=== PATIENT | male | born 1975 | race American Indian/Alaskan Native ===

== ENCOUNTER 2018-10-13 10:20 | Emergency (ER) | payer MEDICAID, OTHER ==
[2018-10-13] MEDS ORDERED: Sodium Chloride 0.9% 1,000 ML IV ONE (10:44)
[2018-10-13] MEDS ORDERED: Sodium Chloride 0.9% 10 ML Syringe FLUSH PRN (10:44)
[2018-10-13] MEDS ORDERED: Sodium Chloride 0.9% 2.5 ML Syringe FLUSH PRN (10:44)
--- NOTE | 2018-10-13 10:51 | EDM.PDOC ---
ED HPI GENERAL MEDICAL PROBLEM - General Chief Complaint: Abdominal Pain Stated Complaint: SIDE PAIN Time Seen by Provider: 10/13/18 10:51 Source of Information: Reports: Patient History Limitations: Reports: No Limitations - History of Present Illness INITIAL COMMENTS - FREE TEXT/NARRATIVE: HISTORY AND PHYSICAL: History of present illness: Patient is a 43-year-old female here with complaint of right lower quadrant pain since this morning. Patient was seen in the ED 09/21 for an umbilical hernia and found to have a small bowel obstruction. He was sent to [place] and had hernia repair done there by Dr. Garcia. He did have post op wound dehiscence and infection at the incision site but today states he is not having any pain or purulent drainage from his incision. He states it is sharp constant pain in the right lower quadrant that started suddenly this morning. He has felt feverish with chills and states he is nauseous. He denies vomiting or diarrhea. He has a normal nonbloody bowel movement this morning. Review of systems: As per history of present illness and below otherwise all systems reviewed and negative. Past medical history: As per history of present illness and as reviewed below otherwise noncontributory. Surgical history: As per history of present illness and as reviewed below otherwise noncontributory. Social history: No reported history of drug or alcohol abuse. Family history: As per history of present illness and as reviewed below otherwise noncontributory. Physical exam: General: Patient sitting comfortably in no acute distress and nontoxic appearing HEENT: Atraumatic, normocephalic, pupils reactive, negative for conjunctival pallor or scleral icterus, mucous membranes moist, throat clear, neck supple, nontender, trachea midline. No meningeal signs. Lungs: Clear to auscultation, breath sounds equal bilaterally, chest nontender. Heart: S1S2, regular, negative for clicks, rubs, or overt murmur. Abdomen: Midline abdominal incision with arabella in place and dehiscence of the lower portion of the incision without any erythema or purulent drainage. Mild diffuse abdominal tenderness with moderate tenderness to palpation of the RLQ. Soft, nondistended. Negative for masses or hepatosplenomegaly. Negative for costovertebral tenderness. Pelvis: Stable nontender. Genitourinary: Deferred. Rectal: Deferred. Extremities: Atraumatic, negative for cords or calf pain. Neurovascular unremarkable. Neuro: Awake, alert, oriented. Cranial nerves II through XII unremarkable. Cerebellum unremarkable. Motor and sensory unremarkable throughout. Exam nonfocal. Notes: Discussed with Dr. Winston, general surgery, at [facility]. He states patient may wait to see Dr. Garcia tomorrow as he does have a follow with her already schedule but should return to the ED should his symptoms worsen for transfer to [facility]. Patient was informed to return to the ED if he develops worsening pain, vomiting, fevers, etc. Diagnostics: CBC, CMP, UA, UC, CT abdomen pelvis with contrast Therapeutics: 1 L normal saline IV 4 mg morphine IV Prescriptions: [place] Impression: Abdominal pain, post operative free air Plan: 1. Take norco as needed for pain 2. Follow up with your surgeon tomorrow at [place] 3. Return to ED as needed as discussed Definitive disposition and diagnosis as appropriate pending reevaluation and review of above. Right Lower Abdomen Pain Score (Numeric/FACES): 10 - Related Data Allergies Allergy/AdvReac Type Severity Reaction Status Date / Time No Known Allergies Allergy Verified 10/13/18 10:36 Home Meds: Home Meds hydroCHLOROthiazide [Hydrochlorothiazide] 25 mg PO DAILY 10/13/18 [History] Past Medical History HEENT History: Reports: None Cardiovascular History: Reports: None, Hypertension Respiratory History: Reports: None Gastrointestinal History: Reports: Other (See Below) Other Gastrointestinal History: Hernia, Umbillical Genitourinary History: Reports: None Musculoskeletal History: Reports: None Neurological History: Reports: None Psychiatric History: Reports: None Endocrine/Metabolic History: Reports: None, Obesity/BMI 30+ Hematologic History: Reports: None Immunologic History: Reports: None Oncologic (Cancer) History: Reports: None Dermatologic History: Reports: None - Infectious Disease History Infectious Disease History: Reports: Chicken Pox - Past Surgical History Head Surgeries/Procedures: Reports: None HEENT Surgical History: Reports: Eye Surgery Cardiovascular Surgical History: Reports: None Respiratory Surgical History: Reports: None GI Surgical History: Reports: Hernia, Abdominal, Other (See Below) Other GI Surgeries/Procedures: umbilical hernia Male Surgical History: Reports: None Endocrine Surgical History: Reports: None Neurological Surgical History: Reports: None Musculoskeletal Surgical History: Reports: None Dermatological Surgical History: Reports: None Social & Family History - Family History Family Medical History: Noncontributory - Tobacco Use Smoking Status *Q: Current Every Day Smoker Years of Tobacco use: 30 Packs/Tins Daily: 1 - Caffeine Use Caffeine Use: Reports: Soda - Recreational Drug Use Recreational Drug Use: No ED ROS GENERAL - Review of Systems Review Of Systems: ROS reveals no pertinent complaints other than HPI. ED EXAM, GI/ABD - Physical Exam Exam: See Below (see dictation) Course - Vital Signs Last Recorded V/S: Last Vital Signs Temp 96.5 F 10/13/18 10:31 Pulse Resp 18 10/13/18 10:31 BP 132/68 10/13/18 10:31 Pulse Ox - Orders/Labs/Meds Orders: Active Orders 24 hr Category Date Time Status CULTURE URINE [RM] Stat Lab 10/13/18 11:07 Received Sodium Chloride 0.9% [Saline Flush] Med 10/13/18 10:44 Active 10 ml FLUSH ASDIRECTED PRN Sodium Chloride 0.9% [Saline Flush] Med 10/13/18 10:44 Active 2.5 ml FLUSH ASDIRECTED PRN Saline Lock Insert [OM.PC] Stat Oth 10/13/18 10:43 Ordered Medication Orders Sodium Chloride (Saline Flush) 10 ml FLUSH ASDIRECTED PRN PRN Reason: Keep Vein Open Sodium Chloride (Saline Flush) 2.5 ml FLUSH ASDIRECTED PRN PRN Reason: Keep Vein Open Labs: Laboratory Tests 10/13/18 10/13/18 10/13/18 Range/Units 11:07 11:12 11:12 WBC 15.13 H (4.0-11.0) K/uL RBC 5.03 (4.50-5.90) M/uL Hgb 13.7 (13.0-17.0) g/dL Hct 41.7 (38.0-50.0) % MCV 82.9 (80.0-98.0) fL MCH 27.2 (27.0-32.0) pg MCHC 32.9 (31.0-37.0) g/dL RDW Std Deviation 41.9 (28.0-62.0) fl RDW Coeff of Basil 14 (11.0-15.0) % Plt Count 400 (150-400) K/uL MPV 9.30 (7.40-12.00) fL Neut % (Auto) 85.7 H (48.0-80.0) % Lymph % (Auto) 8.9 L (16.0-40.0) % [place] % (Auto) 4.8 (0.0-15.0) % Eos % (Auto) 0.3 (0.0-7.0) % Baso % (Auto) 0.3 (0.0-1.5) % Neut # (Auto) 13.0 H (1.4-5.7) K/uL Lymph # (Auto) 1.3 (0.6-2.4) K/uL [place] # (Auto) 0.7 (0.0-0.8) K/uL Eos # (Auto) 0.1 (0.0-0.7) K/uL Baso # (Auto) 0.0 (0.0-0.1) K/uL Nucleated RBC % 0.0 /100WBC Nucleated RBCs # 0 K/uL Sodium 135 L (136-148) mmol/L Potassium 4.3 (3.5-5.1) mmol/L Chloride 99 (98-107) mmol/L Carbon Dioxide 25.1 (21.0-32.0) mmol/L BUN 11 (7.0-18.0) mg/dL Creatinine 1.1 (0.8-1.3) mg/dL Est Cr Clr Drug Dosing 79.29 mL/min Estimated GFR (MDRD) > 60.0 ml/min Glucose 161 H (74-106) mg/dL Calcium 9.5 (8.5-10.1) mg/dL Total Bilirubin 0.4 (0.2-1.0) mg/dL AST 16 (15-37) IU/L ALT 22 (14-63) IU/L Alkaline Phosphatase 84 (46-116) U/L Total Protein 8.9 H (6.4-8.2) g/dL Albumin 3.6 (3.4-5.0) g/dL Globulin 5.3 H (2.6-4.0) g/dL Albumin/Globulin Ratio 0.7 L (0.9-1.6) Urine Color YELLOW Urine Appearance CLEAR Urine pH 6.5 (5.0-8.0) Ur Specific [place] 1.025 (1.001-1.035) Urine Protein NEGATIVE (NEGATIVE) mg/dL Urine Glucose (UA) NEGATIVE (NEGATIVE) mg/dL Urine Ketones NEGATIVE (NEGATIVE) mg/dL Urine Occult Blood TRACE-INTACT H (NEGATIVE) Urine Nitrite NEGATIVE (NEGATIVE) Urine Bilirubin NEGATIVE (NEGATIVE) Urine Urobilinogen 0.2 (<2.0) EU/dL Ur Leukocyte Esterase NEGATIVE (NEGATIVE) Urine RBC 2-4 (0-2/HPF) Urine WBC 1-3 (0-5/HPF) Ur Epithelial Cells RARE (NONE-FEW) Urine Bacteria RARE (NEGATIVE) Meds: Medications Generic Name Dose Route Start Last Admin Trade Name Freq PRN Reason Stop Dose Admin Sodium Chloride 10 ml 10/13/18 10:44 Saline Flush FLUSH ASDIRECTED PRN Keep Vein Open Sodium Chloride 2.5 ml 10/13/18 10:44 Saline Flush FLUSH ASDIRECTED PRN Keep Vein Open Discontinued Medications Generic Name Dose Route Start Last Admin Trade Name Freq PRN Reason Stop Dose Admin Sodium Chloride 1,000 mls @ 999 mls/hr 10/13/18 10:44 10/13/18 11:23 Normal Saline IV 10/13/18 11:44 999 mls/hr STAT ONE Administration Iopamidol 100 ml 10/13/18 12:22 10/13/18 12:22 Isovue Multipack-370 (76%) IVPUSH 10/13/18 12:23 100 ml ONETIME ONE Administration Morphine Sulfate 4 mg 10/13/18 10:55 10/13/18 11:30 Morphine IVPUSH 10/13/18 10:56 4 mg ONETIME ONE Administration Ondansetron HCl 4 mg 10/13/18 11:24 10/13/18 11:28 Zofran IVPUSH 10/13/18 11:25 4 mg ONETIME ONE Administration Departure - Departure Time of Disposition: 13:24 Disposition: Home, Self-Care 01 Condition: Good Clinical Impression: Abdominal pain, Post-operative complication - Discharge Information Referrals: Avel Ray [Primary Care Provider] - Forms: ED Department Discharge Additional Instructions: The following information is given to patients seen in the emergency department who are being discharged to home. This information is to outline your options for follow-up care. We provide all patients seen in our emergency department with a follow-up referral. The need for follow-up, as well as the timing and circumstances, are variable depending upon the specifics of your emergency department visit. If you don't have a primary care physician on staff, we will provide you with a referral. We always advise you to contact your personal physician following an emergency department visit to inform them of the circumstance of the visit and for follow-up with them and/or the need for any referrals to a consulting specialist. The emergency department will also refer you to a specialist when appropriate. This referral assures that you have the opportunity for follow-up care with a specialist. All of these measure are taken in an effort to provide you with optimal care, which includes your follow-up. Under all circumstances we always encourage you to contact your private physician who remains a resource for coordinating your care. When calling for follow-up care, please make the office aware that this follow-up is from your recent emergency room visit. If for any reason you are refused follow-up, please contact the [facility] Emergency Department at and asked to speak to the emergency department charge nurse. [address] [address] 1. Take norco as needed for pain 2. Follow up with your surgeon tomorrow at [place] 3. Return to ED as needed as discussed - My Orders Last 24 Hours: My Active Orders 10/13/18 10:43 Saline Lock Insert [OM.PC] Stat 10/13/18 10:44 Sodium Chloride 0.9% [Saline Flush] 10 ml FLUSH ASDIRECTED PRN Sodium Chloride 0.9% [Saline Flush] 2.5 ml FLUSH ASDIRECTED PRN 10/13/18 11:07 CULTURE URINE [RM] Stat - Assessment/Plan Last 24 Hours: My Active Orders 10/13/18 10:43 Saline Lock Insert [OM.PC] Stat 10/13/18 10:44 Sodium Chloride 0.9% [Saline Flush] 10 ml FLUSH ASDIRECTED PRN Sodium Chloride 0.9% [Saline Flush] 2.5 ml FLUSH ASDIRECTED PRN 10/13/18 11:07 CULTURE URINE [RM] Stat
[2018-10-13] MEDS ORDERED: Morphine 4 MG/ML Syringe IVPUSH ONE (10:55)
[2018-10-13] MEDS ORDERED: Ondansetron 4 MG/2 ML SDV IVPUSH ONE (11:24)
[2018-10-13 11:53] LABS: CHLORIDE,CL 99 mmol/L (98-107); SODIUM,NA 135 mmol/L (136-148)
[2018-10-13] MEDS ORDERED: Iopamidol 755 MG/ML 500 ML Multipack Bottle IVPUSH ONE (12:22)
--- NOTE | 2018-10-13 12:54 | CT ---
CT of the abdomen and pelvis with contrast. HISTORY: Pain TECHNIQUE: Axial CT images were obtained of the abdomen and pelvis following administration of 100 mL of Isovue-370 in the left antecubital fossa without complication. Coronal and sagittal reconstructions obtained. Comparison: 09/30/2018. FINDINGS: The lung bases are clear, no pleural effusion. The liver, spleen, and pancreas appear normal. Stable 1.9 cm left adrenal nodule. No bulky retroperitoneal lymphadenopathy or abdominal ascites. There is a small amount of free air noted. Cholelithiasis without evidence of cholecystitis. The kidneys enhance and function symmetrically without evidence of obstructive uropathy. There is a single loop of borderline small bowel within the region of the distal ileum. Postsurgical changes noted along the ventral abdomen with a decreasing subcutaneous collection. There is stranding adjacent to the distal ileum with focal wall thickening and free air. The appendix is unremarkable. No pelvic lymphadenopathy or significant free pelvic fluid. Small fat-containing bilateral inguinal hernias. No suspicious osseous abnormalities identified. IMPRESSION: 1. Increasing free air is stranding adjacent to the distal ileum. This may represent a focal area of perforation. This could suggest a small area of ischemia from the previous bowel obstruction which has now perforated. Additionally there is a single loop of mildly prominent bowel adjacent to this region which may suggest a recurrent obstruction however the more proximal small bowel is not distended. 2. Previously demonstrated subcutaneous ventral fluid collection along the incision margin has decreased in size and prominence. 3. Cholelithiasis without evidence of cholecystitis.
== END 2018-10-13 13:46 | disposition home or self-care (01) ==
LOC: MW.ED 10:20
DX: K91.89 Other postprocedural complications and disorders of digestive system (principal); R10.31 Right lower quadrant pain; I10 Essential (primary) hypertension; E66.9 Obesity, unspecified; F17.210 Nicotine dependence, cigarettes, uncomplicated
CPT/HCPCS: 36415; 74177; 80053; 81001; 85025; 87086; 96361; 96374; 96375; 99284; J2270; J2405; J7040; Q9967

== ENCOUNTER 2018-10-25 23:08 | Emergency (ER) | payer MEDICAID, OTHER ==
[2018-10-25] MEDS ORDERED: Sodium Chloride 0.9% 1,000 ML IV ONE (23:18)
--- NOTE | 2018-10-25 23:22 | EDM.PDOC ---
ED HPI GENERAL MEDICAL PROBLEM - General Chief Complaint: Abdominal Pain Stated Complaint: ABDOMINAL PAIN Time Seen by Provider: 10/25/18 23:11 - History of Present Illness INITIAL COMMENTS - FREE TEXT/NARRATIVE: HISTORY AND PHYSICAL: History of present illness: Patient 43-year-old white male with past medical history significant for prior ventral hernia repair with subsequent wound complications and chronic pain subsequent. Was seen on October 15 in our emergency department for abdominal pain and reported constipation with no bowel movement for the prior 3-4 weeks at that time he was found to have a fluid collection in his right upper quadrant with pneumoperitoneum and was felt to be a likely contained perforation was subsequently transferred to [facility] he received evaluation treatment there in the form of nonsurgical management and presents now with recurrence of his abdominal pain. There's been no reported fever chills he denies any nausea vomiting. Review of systems: As per history of present illness and below otherwise all systems reviewed and negative. Past medical history: As per history of present illness and as reviewed below otherwise noncontributory. Surgical history: As per history of present illness and as reviewed below otherwise noncontributory. Social history: No reported history of drug or alcohol abuse. Family history: As per history of present illness and as reviewed below otherwise noncontributory. Physical exam: HEENT: Atraumatic, normocephalic, pupils reactive, negative for conjunctival pallor or scleral icterus, mucous membranes moist, throat clear, neck supple, nontender, trachea midline. Lungs: Clear to auscultation, breath sounds equal bilaterally, chest nontender. Heart: S1S2, regular, negative for clicks, rubs, or JVD. Abdomen: Soft, nondistended, nonlocalized tenderness no rebound no guarding Negative for masses or hepatosplenomegaly. Negative for costovertebral tenderness. Pelvis: Stable nontender. Genitourinary: Deferred. Rectal: Deferred. Extremities: Atraumatic, negative for cords or calf pain. Neurovascular unremarkable. Neuro: Awake, alert, oriented. Cranial nerves II through XII unremarkable. Cerebellum unremarkable. Motor and sensory unremarkable throughout. Exam nonfocal. Diagnostics: CBC CMP UA CT abdomen and pelvis with IV contrast chest x-ray EKG Therapeutics: Saline 1 L bolus Impression: #1 abdominal pain Definitive disposition and diagnosis as appropriate pending reevaluation and review of above. Abdomen Pain Score (Numeric/FACES): 10 - Related Data Allergies Allergy/AdvReac Type Severity Reaction Status Date / Time No Known Allergies Allergy Verified 10/25/18 23:17 Home Meds: Home Meds hydroCHLOROthiazide [Hydrochlorothiazide] 25 mg PO DAILY 10/13/18 [History] Past Medical History HEENT History: Reports: None Cardiovascular History: Reports: Hypertension Respiratory History: Reports: None Gastrointestinal History: Reports: Other (See Below) Other Gastrointestinal History: Hernia, Umbillical Genitourinary History: Reports: None Musculoskeletal History: Reports: None Neurological History: Reports: None Psychiatric History: Reports: None Endocrine/Metabolic History: Reports: None, Obesity/BMI 30+ Hematologic History: Reports: None Immunologic History: Reports: None Oncologic (Cancer) History: Reports: None Dermatologic History: Reports: None - Infectious Disease History Infectious Disease History: Reports: Chicken Pox - Past Surgical History Head Surgeries/Procedures: Reports: None HEENT Surgical History: Reports: Eye Surgery Cardiovascular Surgical History: Reports: None Respiratory Surgical History: Reports: None GI Surgical History: Reports: Hernia, Abdominal, Hernia Repair/Other, Other ( See Below) Other GI Surgeries/Procedures: umbilical hernia Male Surgical History: Reports: None Endocrine Surgical History: Reports: None Neurological Surgical History: Reports: None Musculoskeletal Surgical History: Reports: None Dermatological Surgical History: Reports: None Social & Family History - Family History Family Medical History: Noncontributory - Caffeine Use Caffeine Use: Reports: Soda ED ROS GENERAL - Review of Systems Review Of Systems: ROS reveals no pertinent complaints other than HPI. ED EXAM, GENERAL - Physical Exam Exam: See Below (See dictation) Course - Vital Signs Last Recorded V/S: Last Vital Signs Temp 36.3 C 10/26/18 01:50 Pulse 112 H 10/26/18 01:50 Resp 18 10/26/18 01:50 BP 110/63 10/26/18 01:50 Pulse Ox 93 L 10/26/18 01:50 - Orders/Labs/Meds Orders: Active Orders 24 hr Category Date Time Status EKG Documentation Completion [RC] STAT Care 10/25/18 23:19 Active Oxygen Therapy [RC] ASDIRECTED Care 10/26/18 01:51 Active Abdomen Pelvis w Cont [CT] Stat Exams 10/25/18 23:19 Taken CULTURE BLOOD [BC] Stat Lab 10/26/18 00:45 Received CULTURE BLOOD [BC] Stat Lab 10/26/18 00:55 Received UA W/PAM RFLX IF INDICATED [URIN] Stat Lab 10/25/18 23:19 Ordered Blood Culture x2 Reflex Set [OM.PC] Stat Oth 10/26/18 00:33 Ordered Labs: Laboratory Tests 10/25/18 10/25/18 10/25/18 Range/Units 23:40 23:40 23:40 WBC 24.30 H (4.0-11.0) K/uL RBC 4.96 (4.50-5.90) M/uL Hgb 13.7 (13.0-17.0) g/dL Hct 40.3 (38.0-50.0) % MCV 81.3 (80.0-98.0) fL MCH 27.6 (27.0-32.0) pg MCHC 34.0 (31.0-37.0) g/dL RDW Std Deviation 41.2 (28.0-62.0) fl RDW Coeff of Basil 14 (11.0-15.0) % Plt Count 354 (150-400) K/uL MPV 9.50 (7.40-12.00) fL Add Manual Diff YES Neutrophils % (Manual) 91 H (48.0-80.0) % Lymphocytes % (Manual) 5 L (16.0-40.0) % Monocytes % (Manual) 4 (0.0-15.0) % Nucleated RBC % 0.0 /100WBC Absolute Seg Neuts 22.1 H (1.4-5.7) Lymphocytes # (Manual) 1.2 (0.6-2.4) Monocytes # (Manual) 1.0 H (0.0-0.8) Nucleated RBCs # 0 K/uL Lactate 1.7 (0.20-2.00) mmol/L Sodium 134 L (136-148) mmol/L Potassium 4.0 (3.5-5.1) mmol/L Chloride 97 L (98-107) mmol/L Carbon Dioxide 26.8 (21.0-32.0) mmol/L BUN 11 (7.0-18.0) mg/dL Creatinine 1.1 (0.8-1.3) mg/dL Est Cr Clr Drug Dosing 79.29 mL/min Estimated GFR (MDRD) > 60.0 ml/min Glucose 171 H (74-106) mg/dL Calcium 9.4 (8.5-10.1) mg/dL Total Bilirubin 0.8 (0.2-1.0) mg/dL AST 10 L (15-37) IU/L ALT 10 L (14-63) IU/L Alkaline Phosphatase 57 (46-116) U/L Total Protein 7.6 (6.4-8.2) g/dL Albumin 2.7 L (3.4-5.0) g/dL Globulin 4.9 H (2.6-4.0) g/dL Albumin/Globulin Ratio 0.6 L (0.9-1.6) Meds: Medications Discontinued Medications Generic Name Dose Route Start Last Admin Trade Name Freq PRN Reason Stop Dose Admin Hydromorphone HCl 1 mg 10/26/18 01:30 10/26/18 01:34 Dilaudid IVPUSH 10/26/18 01:31 1 mg ONETIME ONE Administration Sodium Chloride 1,000 mls @ 999 mls/hr 10/25/18 23:18 10/26/18 00:18 Normal Saline IV 10/26/18 00:18 999 mls/hr .BOLUS ONE Administration Metronidazole 500 mg/ Premix 100 mls @ 100 mls/hr 10/26/18 00:34 IV 10/26/18 01:33 ONETIME ONE Piperacillin Sod/Tazobactam 100 mls @ 100 mls/hr 10/26/18 00:33 10/26/18 01: 18 Sod 4.5 gm/ Sodium Chloride IV 10/26/18 01:32 100 mls/hr ONETIME ONE Administration Iopamidol 100 ml 10/26/18 01:08 10/26/18 01:17 Isovue-370 (76%) IVPUSH 10/26/18 01:09 100 ml ONETIME ONE Administration Departure - Departure Time of Disposition: 02:04 Disposition: DC/Tfer to Acute Hospital 02 Condition: Serious Clinical Impression: Leukocytosis Abdominal pain Qualifiers: Abdominal location: right upper quadrant Qualified Code(s): R10.11 - Right upper quadrant pain - Discharge Information Referrals: PCP,Unknown [Primary Care Provider] - Forms: ED Department Discharge - My Orders Last 24 Hours: My Active Orders 10/25/18 23:19 EKG Documentation Completion [RC] STAT Abdomen Pelvis w Cont [CT] Stat UA W/PAM RFLX IF INDICATED [URIN] Stat 10/26/18 00:33 Blood Culture x2 Reflex Set [OM.PC] Stat 10/26/18 00:45 CULTURE BLOOD [BC] Stat 10/26/18 00:55 CULTURE BLOOD [BC] Stat 10/26/18 01:51 Oxygen Therapy [RC] ASDIRECTED - Assessment/Plan Last 24 Hours: My Active Orders 10/25/18 23:19 EKG Documentation Completion [RC] STAT Abdomen Pelvis w Cont [CT] Stat UA W/PAM RFLX IF INDICATED [URIN] Stat 10/26/18 00:33 Blood Culture x2 Reflex Set [OM.PC] Stat 10/26/18 00:45 CULTURE BLOOD [BC] Stat 10/26/18 00:55 CULTURE BLOOD [BC] Stat 10/26/18 01:51 Oxygen Therapy [RC] ASDIRECTED
[2018-10-26 00:16] LABS: CHLORIDE,CL 97 mmol/L (98-107); SODIUM,NA 134 mmol/L (136-148)
[2018-10-26] MEDS ORDERED: Piperacillin/Tazobactam 4.5 GM in Sodium Chloride 0.9% 100 ML IV ONE (00:33)
[2018-10-26] MEDS ORDERED: metroNIDAZOLE/Normal Saline 500 MG in Premix Bag 1 BAG IV ONE (00:34)
[2018-10-26] MEDS ORDERED: Iopamidol 755 Mg/ML 100 ML Bottle IVPUSH ONE (01:08)
[2018-10-26] MEDS ORDERED: HYDROmorphone 1 MG/ML Syringe IVPUSH ONE ×2 (01:30→02:23)
--- NOTE | 2018-10-26 01:34 | CR ---
INDICATION: Chest and abdominal pain. COMPARISON: None available. FINDINGS: An erect single view of the chest was obtained at 0104 hours. There is mild consolidation of the left lung base with loss of the left hemidiaphragm. There is probably a small left pleural effusion as well. The rest of the chest is clear. The heart is mildly enlarged. The mediastinum is otherwise normal in appearance. The osseous structures are normal in appearance for the patient`s age. IMPRESSION: MILD CONSOLIDATION OF THE LEFT LUNG BASE. PROBABLE SMALL LEFT PLEURAL EFFUSION. MILD CARDIOMEGALY. Dictated by Duc Matos MD @ Oct 26 2018 1:30AM Signed by Dr. Duc Matos @ Oct 26 2018 1:33AM
--- NOTE | 2018-10-26 02:09 | CT ---
INDICATION: Follow-up abscess in the right upper quadrant COMPARISON: CT of the abdomen and pelvis from 10/16/2018 TECHNIQUE: CT examination of the abdomen and pelvis was performed without contrast enhancement using 3 mm thick axial sections from the lung bases through the pubic symphysis. Oral contrast was not administered. Please note that all CT scans at this facility use dose modulation, iterative reconstruction, and/or weight-based dosing when appropriate to reduce radiation dose to as low as reasonably achievable. FINDINGS: In the abdomen, the unenhanced liver, spleen, pancreas, and ADRENALS are normal in appearance. The unenhanced kidneys are normal in appearance. The contracted gallbladder contains numerous small calculi. The gallbladder is otherwise normal in appearance. The abdominal aorta is normal in caliber with no sign of dilatation. There is no sign of retroperitoneal mass or adenopathy. There is new moderate dilatation of the proximal and mid small bowel extending to a point of transition in the right lower quadrant just distal to the loop of abnormal bowel seen on the previous study. The findings are that of a partial small-bowel obstruction produced by a stricture or adhesion in the right lower quadrant. There continues to be prominent inflammatory reaction around the loops of small bowel in the right lower quadrant and around the cecum, findings suggestive of Crohn`s disease. The previously seen contained perforation located lateral to the edematous loop of small bowel has decreased in size to 3.5 x 1.5 centimeters, previously 5.3 x 2.8 centimeters. There is increased extraluminal gas located posteriorly along the right lower quadrant anterior abdominal wall adjacent to the contained perforation did mentioned above. This suggests leakage of gas and pus from the collection. There is increased mild of free fluid located in the right pericolic gutter. In the pelvis, the appendix is normal in appearance with no sign of inflammatory process.. The colon in the pelvis is collapsed and otherwise normal in appearance. The prostate is normal in appearance. There is slightly increased mild free fluid in the pelvis. The urinary bladder is normal in appearance. There is no sign of pelvic or inguinal mass or adenopathy. There is increased platelike atelectasis in the left lung base associated with eventration of the left hemidiaphragm. The osseous structures are normal in appearance for the patient`s age. IMPRESSION: NEW PARTIAL SMALL BOWEL OBSTRUCTION WITH DILATATION OF THE MID AND PROXIMAL SMALL BOWEL EXTENDING A STRICTURE IN THE RIGHT LOWER QUADRANT DISTAL TO THE EDEMATOUS LOOPS OF SMALL BOWEL IDENTIFIED ON THE PREVIOUS CT. THE PREVIOUSLY SEEN FLUID COLLECTION LOCATED LATERAL TO THE ABNORMAL LOOP OF SMALL BOWEL THAT IS DECREASED IN SIZE, BUT THERE IS INCREASED EXTRALUMINAL GAS ALONG THE ANTERIOR ABDOMINAL WALL OF THE RIGHT LOWER QUADRANT AND SLIGHTLY INCREASED FLUID IN THE RIGHT PERICOLIC GUTTER, SUGGESTING THAT THE PREVIOUSLY SEEN ABSCESS HAS DRAINED INTO THE ABDOMINAL CAVITY CT OF THE ABDOMEN SHOWS STABLE CHOLELITHIASIS WITH NO SIGN OF ACUTE CHOLECYSTITIS. CT OF THE PELVIS SHOWS CONTINUED INFLAMMATORY REACTION AROUND THE DISTAL SMALL BOWEL AND CECUM SUGGESTING CROHN`S DISEASE. SLIGHTLY INCREASED MILD FREE FLUID IN THE PELVIS. Please note that all CT scans at this facility use dose modulation, iterative reconstruction, and/or weight-based dosing when appropriate to reduce radiation dose to as low as reasonably achievable. Dictated by Duc Matos MD @ Oct 26 2018 1:51AM Signed by Dr. Duc Matos @ Oct 26 2018 2:07AM
== END 2018-10-26 02:51 ==
LOC: MW.ED 23:08
DX: R10.11 Right upper quadrant pain (principal); D72.829 Elevated white blood cell count, unspecified
CPT/HCPCS: 36415; 71045; 74177; 80053; 81003; 83605; 85025; 87040; 93005; 96365; 96366; 96367; 96375; 96376; 99285; J1170; J2543; J3490; J7030; J7040; Q9967

== ENCOUNTER 2018-11-12 21:11 | Emergency (ER) | payer MEDICAID, OTHER ==
[2018-11-12] MEDS ORDERED: Sodium Chloride 0.9% 10 ML Syringe FLUSH PRN (21:36)
[2018-11-12] MEDS ORDERED: Sodium Chloride 0.9% 2.5 ML Syringe FLUSH PRN (21:36)
--- NOTE | 2018-11-12 21:49 | EDM.PDOC ---
<Lu Nieves - Last Filed: 11/12/18 22:07> ED HPI GENERAL MEDICAL PROBLEM - General Chief Complaint: Abdominal Pain Stated Complaint: ADOMINAL PAIN Time Seen by Provider: 11/12/18 21:49 Source of Information: Reports: Patient History Limitations: Reports: No Limitations - History of Present Illness INITIAL COMMENTS - FREE TEXT/NARRATIVE: HISTORY AND PHYSICAL: History of present illness: Patient is a 43-year-old male here with past medical history of ventral hernia repair on 09/21/18 with subsequent complications including bowel obstruction and abscess. His most recent visit to the ED was on 10/25 with complaints of significant lower abdominal pain and no bowel movement for several days. He was found to have leukocytosis and a new small bowel obstruction. CT also showed extraluminal gas along the anterior abdominal wall of the RLQ and slightly increased fluid in the right pericolic gutter, suggesting that abscess had drained into the abdominal cavity. He was transferred to [facility] and had a laparotomy with abscess drainage but no bowel resection. He states that his pain started last night and is in the epigastric region, comes and goes and is a sharp pain that lasts about 20 seconds then resolves. He states he otherwise does not have any pain in his abdomen. He reports it is not nearly as significant as it has been in the past. No pain around his incision site but does states he has been having a "poopy" drainage from the site. He also states that his surgeon poked the incision site after surgery and "popped something" and has noticed the drainage since then but has gotten worse today. He denies fevers or chills. He has had a few episodes of vomiting since yesterday, had a nonbloody stool yesterday and states he is not passing gas today. He denies chest pain, SOB, dysuria, hematuria. He is currently on augmentin. Review of systems: As per history of present illness and below otherwise all systems reviewed and negative. Past medical history: As per history of present illness and as reviewed below otherwise noncontributory. Surgical history: As per history of present illness and as reviewed below otherwise noncontributory. Social history: No reported history of drug or alcohol abuse. Family history: As per history of present illness and as reviewed below otherwise noncontributory. Physical exam: General: Patient sitting comfortably in no acute distress and nontoxic appearing HEENT: Atraumatic, normocephalic, pupils reactive, negative for conjunctival pallor or scleral icterus, mucous membranes moist, throat clear, neck supple, nontender, trachea midline. No meningeal signs. Lungs: Clear to auscultation, breath sounds equal bilaterally, chest nontender. Heart: S1S2, regular, negative for clicks, rubs, or overt murmur. Abdomen: Abdomen is obese. There is a midline surgical scar that appears to be well healing with healthy appearing granulation tissue and no purulent discharge. Horizontal incision to the right lower abdomen well healing with some slightly purulent appearing discharge and some surrounding tenderness to palpation but no significant erythema or fluctance noted. There is an area above and below this incision where drains were placed that have healthy appearing granulation tissues. Negative for masses or hepatosplenomegaly. Negative for costovertebral tenderness. Pelvis: Stable nontender. Genitourinary: Deferred. Rectal: Deferred. Extremities: Atraumatic, negative for cords or calf pain. Neurovascular unremarkable. Neuro: Awake, alert, oriented. Cranial nerves II through XII unremarkable. Cerebellum unremarkable. Motor and sensory unremarkable throughout. Exam nonfocal. Notes: Diagnostics: CBC, CMP, lactic acid, CT abdomen/pelvis w/ contrast Therapeutics: [] Prescriptions: Impression: [] Plan: Dr. Marie assumed care of the patient at 2200 Definitive disposition and diagnosis as appropriate pending reevaluation and review of above. Abdomen Pain Score (Numeric/FACES): 10 - Related Data Allergies Allergy/AdvReac Type Severity Reaction Status Date / Time No Known Allergies Allergy Verified 10/25/18 23:17 Home Meds: Home Meds Amoxicillin 500 mg PO BID 11/12/18 [History] Hydrocodone/Acetaminophen [Hydrocodon-Acetaminophen 5-325] 5 mg PO Q6HR [History] Past Medical History HEENT History: Reports: None Cardiovascular History: Reports: Hypertension Respiratory History: Reports: None Gastrointestinal History: Reports: Other (See Below) Other Gastrointestinal History: Hernia, Umbillical Genitourinary History: Reports: None Musculoskeletal History: Reports: None Neurological History: Reports: None Psychiatric History: Reports: None Endocrine/Metabolic History: Reports: None, Obesity/BMI 30+ Hematologic History: Reports: None Immunologic History: Reports: None Oncologic (Cancer) History: Reports: None Dermatologic History: Reports: None - Infectious Disease History Infectious Disease History: Reports: Chicken Pox - Past Surgical History Head Surgeries/Procedures: Reports: None HEENT Surgical History: Reports: Eye Surgery Cardiovascular Surgical History: Reports: None Respiratory Surgical History: Reports: None GI Surgical History: Reports: Hernia, Abdominal, Hernia Repair/Other, Other ( See Below) Other GI Surgeries/Procedures: umbilical hernia Male Surgical History: Reports: None Endocrine Surgical History: Reports: None Neurological Surgical History: Reports: None Musculoskeletal Surgical History: Reports: None Dermatological Surgical History: Reports: None Social & Family History - Family History Family Medical History: Noncontributory - Caffeine Use Caffeine Use: Reports: Soda ED ROS GENERAL - Review of Systems Review Of Systems: ROS reveals no pertinent complaints other than HPI. ED EXAM, GI/ABD - Physical Exam Exam: See Below (See dictation) Course - Vital Signs Last Recorded V/S: Last Vital Signs Temp 36.4 C 11/12/18 21:38 Pulse 115 H 11/12/18 21:38 Resp 18 11/12/18 21:38 BP 110/74 11/12/18 21:38 Pulse Ox 97 11/12/18 21:38 - Orders/Labs/Meds Orders: Active Orders 24 hr Category Date Time Status Lactated Ringers @ 150 MLS/HR(1,000ml) Med 11/13/18 00:15 Ordered Lactated Ringers [Ringers, Lactated] 1,000 ml IV ASDIRECTED Piperacillin/Tazobactam [Piperacil-Tazobact] 4.5 gm Med 11/13/18 00:02 Ordered Sodium Chloride 0.9% [Normal Saline] 100 ml IV ONETIME Sodium Chloride 0.9% [Saline Flush] Med 11/12/18 21:36 Active 10 ml FLUSH ASDIRECTED PRN Sodium Chloride 0.9% [Saline Flush] Med 11/12/18 21:36 Active 2.5 ml FLUSH ASDIRECTED PRN Saline Lock Insert [OM.PC] Stat Oth 11/12/18 21:36 Ordered Medication Orders Sodium Chloride (Saline Flush) 10 ml FLUSH ASDIRECTED PRN PRN Reason: Keep Vein Open Last Admin: 11/12/18 22:04 Dose: 10 ml Sodium Chloride (Saline Flush) 2.5 ml FLUSH ASDIRECTED PRN PRN Reason: Keep Vein Open Last Admin: 11/12/18 22:04 Dose: 2.5 ml Labs: Laboratory Tests 11/12/18 11/12/18 11/12/18 Range/Units 21:50 21:50 22:03 WBC 14.83 H (4.0-11.0) K/uL RBC 4.43 L (4.50-5.90) M/uL Hgb 11.4 L (13.0-17.0) g/dL Hct 35.5 L (38.0-50.0) % MCV 80.1 (80.0-98.0) fL MCH 25.7 L (27.0-32.0) pg MCHC 32.1 (31.0-37.0) g/dL RDW Std Deviation 40.8 (28.0-62.0) fl RDW Coeff of Basil 14 (11.0-15.0) % Plt Count 597 H (150-400) K/uL MPV 9.00 (7.40-12.00) fL Neut % (Auto) 84.5 H (48.0-80.0) % Lymph % (Auto) 8.0 L (16.0-40.0) % [place] % (Auto) 7.3 (0.0-15.0) % Eos % (Auto) 0.1 (0.0-7.0) % Baso % (Auto) 0.1 (0.0-1.5) % Neut # (Auto) 12.5 H (1.4-5.7) K/uL Lymph # (Auto) 1.2 (0.6-2.4) K/uL [place] # (Auto) 1.1 H (0.0-0.8) K/uL Eos # (Auto) 0.0 (0.0-0.7) K/uL Baso # (Auto) 0.0 (0.0-0.1) K/uL Nucleated RBC % 0.0 /100WBC Nucleated RBCs # 0 K/uL Lactate 3.1 H (0.20-2.00) mmol/L Sodium 136 (136-148) mmol/L Potassium 3.5 (3.5-5.1) mmol/L Chloride 99 (98-107) mmol/L Carbon Dioxide 26.2 (21.0-32.0) mmol/L BUN 8 (7.0-18.0) mg/dL Creatinine 1.0 (0.8-1.3) mg/dL Est Cr Clr Drug Dosing 87.22 mL/min Estimated GFR (MDRD) > 60.0 ml/min Glucose 209 H (74-106) mg/dL Calcium 8.9 (8.5-10.1) mg/dL Total Bilirubin 0.3 (0.2-1.0) mg/dL AST 9 L (15-37) IU/L ALT 9 L (14-63) IU/L Alkaline Phosphatase 73 (46-116) U/L Total Protein 7.3 (6.4-8.2) g/dL Albumin 2.1 L (3.4-5.0) g/dL Globulin 5.2 H (2.6-4.0) g/dL Albumin/Globulin Ratio 0.4 L (0.9-1.6) Meds: Medications Generic Name Dose Route Start Last Admin Trade Name Freq PRN Reason Stop Dose Admin Sodium Chloride 10 ml 11/12/18 21:36 11/12/18 22:04 Saline Flush FLUSH 10 ml ASDIRECTED PRN Administration Keep Vein Open Sodium Chloride 2.5 ml 11/12/18 21:36 11/12/18 22:04 Saline Flush FLUSH 2.5 ml ASDIRECTED PRN Administration Keep Vein Open Discontinued Medications Generic Name Dose Route Start Last Admin Trade Name Freq PRN Reason Stop Dose Admin Iopamidol 100 ml 11/12/18 22:48 11/12/18 22:48 Isovue Multipack-370 (76%) IVPUSH 11/12/18 22:49 100 ml ONETIME STA Administration Departure - Departure Time of Disposition: 22:07 Disposition: DC/Tfer to Acute Hospital 02 Clinical Impression: Intraabdominal fluid collection, Postoperative abscess - Discharge Information Referrals: PCP,None [Primary Care Provider] - Forms: ED Department Discharge - My Orders Last 24 Hours: My Active Orders 11/13/18 00:02 Piperacillin/Tazobactam [Piperacil-Tazobact] 4.5 gm Sodium Chloride 0.9% [ Normal Saline] 100 ml IV ONETIME 11/13/18 00:15 Lactated Ringers @ 150 MLS/HR(1,000ml) Lactated Ringers [Ringers, Lactated] 1, 000 ml IV ASDIRECTED - Assessment/Plan Last 24 Hours: My Active Orders 11/13/18 00:02 Piperacillin/Tazobactam [Piperacil-Tazobact] 4.5 gm Sodium Chloride 0.9% [ Normal Saline] 100 ml IV ONETIME 11/13/18 00:15 Lactated Ringers @ 150 MLS/HR(1,000ml) Lactated Ringers [Ringers, Lactated] 1, 000 ml IV ASDIRECTED <Elizabeth Marie - Last Filed: 11/13/18 00:05> ED HPI GENERAL MEDICAL PROBLEM - History of Present Illness INITIAL COMMENTS - FREE TEXT/NARRATIVE: Dr. Marie dictating addendum note as they've assumed care of this case at 10 PM. Agree with history and physical as above taking care of this patient in the past with my last interaction with him on October 15. My note from that date has been reviewed and the patient has had multiple visits here to our ED all was subsequent transferred to [facility] due to abnormal finding both clinically and on CAT scan. The patient does reiterate that he had a bowel movement yesterday but is not passing gas today and the pain does come and go. He is currently not having it when he was initially evaluated. The drainage from the incision has looked dark in color and they were concerned stool. The patient was just discharged from [facility] in [place] 4 days ago. He was discharged home on hydrocodone for pain as well as Augmentin. The family says that prior to discharge Dr. Roche saw the patient and "poked" he is horizontal incision not his umbilical incision and drain some fluid. On my visual inspection of that same wound there is some serosanguineous yellowish material draining that looks like fat necrosis. That particular wound has arabella intact and there is no tenderness and there is a slight amount of warmth in the region. The periumbilical wound has multiple arabella and some crusting but no active drainage. The showed me his shirt which does have some light brown material on it that may or may not be stool and they're saying this is what they saw draining from the umbilicus although that is not occurring now. This periumbilical wound also has some minimal surrounding erythema and warmth but no gross fluctuance is seen throughout. Bowel sounds are present and are intermittent. The patient is saying that when he gets a wave of pain it is usually in his periumbilical and supraumbilical area and then he feels a lot of gurgling and he can hear his bowel making noises even without a stethoscope. He currently on my evaluation is not having pain but appears to be frustrated with recent events. He says he has been eating and drinking but did have those several episodes of small vomitus but is not nauseated currently. We will continue to monitor the testing results and discuss this case with the surgeon in [place] as needed and indicated. All testing results were discussed with the patient and at bedside and he has very upset and frustrated initially told me that he wanted to go home and not be transferred to [place]. I discussed all of the case including tinnitus findings with the surgeon physician non invasive cardiologist Dr. Contreras, at 2343 and she has accepted the patient for transfer. She would like me to give a dose of Zosyn and maintenance fluids which I have ordered. I know the patient is very frustrated as he keeps going to [facility] and [place] and either being observed her having surgery and then being discharged only to turn around and do it again but I strongly advised him that he needs to return there and not go home. After discussing things with his he is now agreeable for transfer. One call at [place] is also inform the ER of the transfer. We will arrange for an ambulance to bring him there. Impression: Postop abdominal pain with new intra-abdominal abscess and partial small bowel obstruction ED ROS GENERAL - Review of Systems Review Of Systems: ROS reveals no pertinent complaints other than HPI. Departure - Departure Time of Disposition: 00:05 Condition: Good - My Orders Last 24 Hours: My Active Orders 11/13/18 00:02 Piperacillin/Tazobactam [Piperacil-Tazobact] 4.5 gm Sodium Chloride 0.9% [ Normal Saline] 100 ml IV ONETIME 11/13/18 00:15 Lactated Ringers @ 150 MLS/HR(1,000ml) Lactated Ringers [Ringers, Lactated] 1, 000 ml IV ASDIRECTED - Assessment/Plan Last 24 Hours: My Active Orders 11/13/18 00:02 Piperacillin/Tazobactam [Piperacil-Tazobact] 4.5 gm Sodium Chloride 0.9% [ Normal Saline] 100 ml IV ONETIME 11/13/18 00:15 Lactated Ringers @ 150 MLS/HR(1,000ml) Lactated Ringers [Ringers, Lactated] 1, 000 ml IV ASDIRECTED
[2018-11-12 22:22] LABS: CHLORIDE,CL 99 mmol/L (98-107); SODIUM,NA 136 mmol/L (136-148)
[2018-11-12] MEDS ORDERED: Iopamidol 755 MG/ML 500 ML Multipack Bottle IVPUSH STA (22:48)
--- NOTE | 2018-11-12 23:34 | CT ---
INDICATION: Abdominal pain. COMPARISON: 10/26/2018 TECHNIQUE: CT examination of the abdomen and pelvis was performed with the uneventful intravenous administration of 100 cc of Isovue 370 while 3 mm thick axial sections were obtained from the lung bases through the pubic symphysis. Oral contrast was not administered. Please note that all CT scans at this facility use dose modulation, iterative reconstruction, and/or weight-based dosing when appropriate to reduce radiation dose to as low as reasonably achievable. FINDINGS: In the abdomen, the liver, spleen, pancreas, and right adrenal are normal in appearance. Again seen is the 2.2 centimeter diameter low-density left adrenal nodule consistent with an adenoma. The kidneys are normal in appearance. Again seen is mild cholelithiasis with a few small calculi in the dependent portion of the gallbladder. The gallbladder is otherwise normal in appearance. The abdominal aorta is normal in caliber with no sign of dilatation. There is no sign of retroperitoneal mass or adenopathy. The previously seen abscess and free intra-abdominal air located in the right lower quadrant has resolved. The previously seen mild free fluid located inferior to the liver has also resolved. There is a new fluid collection with extraluminal gas located medial to the ascending colon at the level of the inferior hepatic margin measuring 3.2 x 2.8 by 2.1 centimeters consistent with an abscess. This appears to have arisen from moderately dilated loops of small bowel with moderate wall thickening immediately adjacent to the abscess. There continues to be moderate dilatation of small bowel throughout the abdomen, extending into an area of inflammatory matting in the right lower quadrant. The findings are that of partial small-bowel obstruction from multiple adhesions, suggestive of Crohn`s disease. The stomach and colon in the abdomen are otherwise normal in appearance. There is a new fluid collection containing a few bubbles of gas located in the subcutaneous tissues of the right anterior upper pelvic wall measuring 5.1 x 2.9 by 12.7 centimeters, located deep to a line of surgical skin arabella. This is consistent with an abscess in the a surgical incision. There is moderate surrounding subcutaneous edema consistent with cellulitis. There is a new midline anterior upper pelvic wall incision with surgical skin arabella, with no sign of any associated fluid collection and mild surrounding inflammatory changes. In the pelvis, the normal-appearing appendix is seen extending inferiorly from the prominent inflammatory reaction in the right lower quadrant. The colon in the pelvis is normal in appearance. There is mild free fluid in the pelvis, improved compared to the previous study. The prostate is normal in appearance. The urinary bladder is normal in appearance. There is increased fullness of inguinal lymph nodes, without kaelyn adenopathy, consistent with reactive nodes. There is similar new mild prominence of external iliac lymph nodes bilaterally without adenopathy. The previously seen platelike consolidation in the lateral left lung base is improved consistent with improving atelectasis. The osseous structures are normal in appearance for the patient`s age. IMPRESSION: CT of the abdomen shows a new abscess in the right mid abdomen at the level of the inferior hepatic margin measuring 2.8 x 3.2 by 2.1 centimeters, appearing to arise from an edematous loop of moderately dilated small bowel. No associated free intra-abdominal air. The previously seen abscess with extraluminal gas seen in the right lower quadrant has resolved. Continued moderate dilatation of loops of small bowel extending into a matted region of small bowel in the right lower quadrant adjacent to the cecum, consistent with a partial small bowel obstruction. The findings are suggestive of Crohn`s disease. Stable left adrenal adenoma. Stable mild cholelithiasis without evidence of acute cholecystitis. CT of the pelvis shows a decrease in free fluid, remaining mild. Please note that all CT scans at this facility use dose modulation, iterative reconstruction, and/or weight-based dosing when appropriate to reduce radiation dose to as low as reasonably achievable. Dictated by Duc Matos MD @ Nov 12 2018 11:14PM Signed by Dr. Duc Matos @ Nov 12 2018 11:33PM
[2018-11-13] MEDS ORDERED: Piperacillin/Tazobactam 4.5 GM in Sodium Chloride 0.9% 100 ML IV ONE (00:02)
[2018-11-13] MEDS ORDERED: Lactated Ringers 1,000 ML IV SCH (00:15)
[2018-11-13] MEDS ORDERED: HYDROmorphone 1 MG/ML Syringe IVPUSH ONE (00:25)
[2018-11-13] MEDS ORDERED: Ondansetron 4 MG/2 ML SDV IVPUSH ONE (00:25)
== END 2018-11-13 00:55 ==
LOC: MW.ED 21:11
DX: T81.43XA Infection following a procedure, organ and space surgical site, initial encounter (principal); I10 Essential (primary) hypertension; E66.9 Obesity, unspecified
CPT/HCPCS: 36415; 74177; 80053; 83605; 85025; 96365; 96375; 99285; J1170; J2405; J2543; J7030; J7120; Q9967

== ENCOUNTER 2020-12-09 21:33 | Emergency (ER) | payer BC, MEDICAID, OTHER ==
[2020-12-09] MEDS ORDERED: Morphine 4 MG/ML Syringe IVPUSH ONE (23:05)
[2020-12-09] MEDS ORDERED: Lactated Ringers 1,000 ML IV SCH (23:15)
[2020-12-09 23:50] LABS: BLOOD UREA NITROGEN,BUN 15 mg/dL (7.0-18.0); CARBON DIOXIDE,CO2 27.6 mmol/L (21.0-32.0); CHLORIDE,CL 101 mmol/L (98-107); GLUCOSE RANDOM 149 mg/dL (74-106); SODIUM,NA 140 mmol/L (136-148)
[2020-12-10] MEDS ORDERED: Iopamidol 755 MG/ML 500 ML Multipack Bottle IVPUSH STA (00:28)
--- NOTE | 2020-12-10 01:23 | CT ---
INDICATION: LEFT SIDED ABDOMINAL WALL PAIN CT ABDOMEN AND PELVIS WITH CONTRAST TECHNIQUE: Multidetector CT imaging was performed through the abdomen and pelvis following intravenous contrast administration using 100 mL Isovue 370. Coronal and sagittal reconstructions were generated. COMPARISON: 11/12/2018 CT abdomen and pelvis. FINDINGS: Lower chest: Mild bibasilar lung atelectasis or scarring. Liver: Small hypodensity in the right hepatic lobe on image 64 series 201 is not well characterized but was present previously and is likely benign. Gallbladder and bile ducts: Cholelithiasis, as before, without evidence of cholecystitis. No biliary dilation identified. Pancreas: Unremarkable. Spleen: Normal. Adrenals: Stable 2.1 centimeter left adrenal nodule, likely an adenoma. Unremarkable right adrenal. Kidneys, ureters, and urinary bladder: Obstructing 7 x 4 x 5 millimeter stone at the left ureteropelvic junction producing mild left hydronephrosis. Small nonobstructing stone noted in the lower pole of the left kidney. No bladder mass or definite wall thickening. Gastrointestinal tract: Status post right hemicolectomy with ileocolic anastomosis. Small bowel postoperative changes in the right mid abdomen. Colonic diverticulosis without evidence of diverticulitis. Abdominal wall: 10-centimeter epigastric ventral hernia to the left of midline contains a short segment of transverse colon, with probable partial obstruction as the bowel proximal to the hernia appears moderately dilated. A 2nd ventral hernia over the right mid abdomen contains a segment of small bowel and a 3rd hernia more inferiorly over the right lower quadrant contains only fat. Vascular structures: Normal for age. Peritoneum: No free air, abscess, or significant free fluid. Lymph nodes: No pathologically enlarged nodes identified. Reproductive organs: No pelvic masses. Bones: Spinal degenerative changes. IMPRESSION: 1. 10-centimeter epigastric ventral hernia contains a segment of transverse colon with probable partial bowel obstruction at the hernia. 2. Obstructing 7 x 4 x 5 millimeter stone at the left ureteropelvic junction producing mild left hydronephrosis. 3. Nonacute additional findings as detailed above. ELYSSA RAMIREZ MD [facility] Dictated by Emmanuel Ramirez MD @ 12/10/2020 1:20:22 AM Dictated by: Emmanuel Ramirez MD @ 12/10/2020 01:21:43 (Electronically Signed)
[2020-12-10] MEDS ORDERED: Morphine 4 MG/ML Syringe IVPUSH ONE (02:14)
[2020-12-10] MEDS ORDERED: Cephalexin 500 MG Cap PO ONE (03:56)
--- NOTE | 2020-12-10 04:06 | EDM.PDOC ---
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 The patient states that since his surgeries 2 years ago he has had a hernia located on his anterior abdomen. He states that for the last 3 days it has been coming back and it has been bulging more. He states that he is feeling pain where the hernia is. He states that he did have some dry heaving 3 hours prior to arrival but did not vomiting anything up because he had has a decreased appetite. He denies any fevers or chills, diarrhea, melena, or hematochezia. He states that this feels like the last time his hernia got strangulated. He describes the pain as sharp and constant rated 8 out of 10. He denies any aggravating factors or relieving factors. He denies any other symptoms REVIEW OF SYSTEMS: Constitutional: Denies fever, chills. Eyes: Denies eye pain Ears, Nose, Mouth, & Throat: Denies earache Cardiovascular: Denies chest pain Respiratory: Denies shortness of breath Gastrointestinal: Positive for anterior abdominal wall pain and bulging near hernia. Positive for dry heaving. Denies vomiting, diarrhea, hematochezia, melena, hematemesis Genitourinary: Denies hematuria, dysuria, penile discharge Skin:Denies a rash MSK: Denies joint pain Neurological: Denies blurred vision Psychiatric: Denies depression PAST MEDICAL HISTORY: As per history of present illness and as reviewed below otherwise noncontributory. SURGICAL HISTORY: As per history of present illness and as reviewed below otherwise noncontributory. SOCIAL HISTORY: As per history of present illness and as reviewed below otherwise noncontributory. FAMILY HISTORY: As per history of present illness and as reviewed below otherwise noncontributory. EXAMINATION OF ORGAN SYSTEMS/BODY AREAS: Constitutional: Blood pressure was 129/87, heart rate was 91, respiratory rate 16 with an oxygen saturation 94% on room air. This appears to be around the patient's baseline. Temperature 36.0 temporally General: Obese gentleman who appears to be mildly anxious Psychiatric: Appropriate mood and affect. Eyes: No scleral icterus or conjunctival erythema ENMT: Moist mucous membranes. No pharyngeal erythema Cardiovascular: Regular, rate, and rhythm. No gallops, murmurs, or rubs. Bilateral upper extremity pulses symmetric and intact. No peripheral edema. No JVD. Respiratory: Lungs clear to auscultation bilaterally. No wheezes, rales, or rhonchi. Gastrointestinal: Obese abdomen. The abdomen is soft, nondistended with a ventral wall hernia which is large and tender to palpation. Normoactive bowel sounds no rebound or guarding. Genitourinary: No suprapubic tenderness Musculoskeletal: Normal range of motion. Skin: No overlying skin changes over the hernia. Neurological: Alert, GCS 15 MEDICAL DECISION MAKING AND COURSE IN THE ED WITH INTERPRETATION/REVIEW OF DIAGNOSTIC STUDIES: This is a 45-year-old man with a complex abdominal history secondary to ventral wall hernia strangulation, abscess, colon resection and resultant fistula who comes to the emergency department with acute anterior ventral wall hernia tenderness which appears to be tender. At this time I am concerned about a strangulated hernia. The patient's vitals are normal and the patient appears nontoxic. At this time given the duration of his symptoms I will not attempt reduction of the hernia. Will obtain basic labs and a CT abdomen pelvis with contrast. We will provide the patient with IV morphine for pain relief. Laboratory: CBC reveals a leukocytosis of 15.48 with neutrophilic predominance. No left shift. Lactate was 1.2. CMP is unremarkable. Urinalysis was a clean catch and was trace for leukocyte esterase, negative for nitrites, and trace for blood. Interpretation: Bacteriuria, possible UTI The radiological images were viewed by myself along with reading the report from the radiologist. CT abdomen pelvis reveals a 10 cm epigastric ventral hernia containing a segment of transverse colon with probable partial small bowel obstruction at the hernia. There is an obstructing 7 x 4 x 5 mm stone at the left uteropelvic junction producing mild left hydronephrosis After imaging I did contact Dr. Cope and discussed the case with him. He states that at this time given no evidence of infection on CT that I could attempt to reduce the hernia. I did attempt to reduce the hernia however the hernia could not be reduced. Therefore I contacted Dr. Cope and he will come into the emergency department for reduction. Dr. Cope did come into the emergency department, reviewed the images and was a ble to reduce the hernias. The patient's pain had significantly improved. We did review the patient's CT and it appears that there is an obstructing stone in the left proximal ureter. There was mild left hydronephrosis. Therefore we will obtain a urinalysis for evaluation. There is no evidence of kidney dysfunction After urinalysis I did start the patient on Keflex and sent a urine culture. I contacted urologist Dr. Kyle who stated that he could follow-up in clinic tomorrow. Therefore I did discuss this with the patient. He is to follow-up with urology tomorrow and contact his prior surgeon in [place] for continued follow-up for his abdominal wall hernias. He was given strict return precautions. DISPOSITION: The patient was discharged home in stable condition. The patient will follow up with urology and general surgery CONDITION: Fair PROCEDURES: None FINAL IMPRESSION(S)/DIAGNOSES: 1. Acute reducible ventral wall hernia 2. Acute obstructive left-sided nephrolithiasis with evidence of infection Bruce Pryor M.D. abdominal Pain Score (Numeric/FACES): 6 - Related Data Allergies Allergy/AdvReac Type Severity Reaction Status Date / Time No Known Allergies Allergy Verified 12/09/20 22:38 Home Meds: Home Meds Amoxicillin 500 mg PO BID 11/12/18 [History] Hydrocodone/Acetaminophen [Hydrocodon-Acetaminophen 5-325] 5 mg PO Q6HR 11/12/18 [History] Tamsulosin [Tamsulosin 24 Hr] 0.4 mg PO DAILY #5 cap.er 12/10/20 [Rx] cephALEXin [Cephalexin] 500 mg PO BID #14 capsule 12/10/20 [Rx] Past Medical History HEENT History: Reports: None Cardiovascular History: Reports: Hypertension Respiratory History: Reports: None Gastrointestinal History: Reports: Other (See Below) Other Gastrointestinal History: Hernia, Umbillical Genitourinary History: Reports: None Musculoskeletal History: Reports: None Neurological History: Reports: None Psychiatric History: Reports: None Endocrine/Metabolic History: Reports: Obesity/BMI 30+, Other (See Below) Other Endocrine/Metabolic History: diabetic, pt. unsure of type Hematologic History: Reports: None Immunologic History: Reports: None Oncologic (Cancer) History: Reports: None Dermatologic History: Reports: None - Infectious Disease History Infectious Disease History: Reports: Chicken Pox - Past Surgical History Head Surgeries/Procedures: Reports: None HEENT Surgical History: Reports: Eye Surgery Cardiovascular Surgical History: Reports: None Respiratory Surgical History: Reports: None GI Surgical History: Reports: Hernia, Abdominal, Hernia Repair/Other, Other (See Below) Other GI Surgeries/Procedures: umbilical hernia Male Surgical History: Reports: None Endocrine Surgical History: Reports: None Neurological Surgical History: Reports: None Musculoskeletal Surgical History: Reports: None Oncologic Surgical History: Reports: Biopsy of Breast Dermatological Surgical History: Reports: None Social & Family History - Family History Family Medical History: No Pertinent Family History - Tobacco Use Packs/Tins Daily: 1 - Caffeine Use Caffeine Use: Reports: None - Recreational Drug Use Recreational Drug Use: No ED ROS GENERAL - Review of Systems Review Of Systems: See Below ED EXAM, GENERAL - Physical Exam Exam: See Below Course - Vital Signs Last Recorded V/S: Last Vital Signs Temp 36.0 C L 12/09/20 22:36 Pulse 75 12/10/20 04:22 Resp 18 12/10/20 04:22 BP 138/70 12/10/20 04:22 Pulse Ox 95 12/10/20 04:22 - Orders/Labs/Meds Labs: Laboratory Tests 12/09/20 12/09/20 12/09/20 Range/Units 23:24 23:24 23:24 WBC 15.48 H (4.0-11.0) K/uL RBC 5.50 (4.50-5.90) M/uL Hgb 15.3 (13.0-17.0) g/dL Hct 45.5 (38.0-50.0) % MCV 82.7 (80.0-98.0) fL MCH 27.8 (27.0-32.0) pg MCHC 33.6 (31.0-37.0) g/dL RDW Std Deviation 40.6 (28.0-62.0) fl RDW Coeff of Basil 14 (11.0-15.0) % Plt Count 315 (150-400) K/uL MPV 9.80 (7.40-12.00) fL Neut % (Auto) 80.4 H (48.0-80.0) % Lymph % (Auto) 14.3 L (16.0-40.0) % Crosby % (Auto) 4.7 (0.0-15.0) % Eos % (Auto) 0.4 (0.0-7.0) % Baso % (Auto) 0.2 (0.0-1.5) % Neut # (Auto) 12.5 H (1.4-5.7) K/uL Lymph # (Auto) 2.2 (0.6-2.4) K/uL Crosby # (Auto) 0.7 (0.0-0.8) K/uL Eos # (Auto) 0.1 (0.0-0.7) K/uL Baso # (Auto) 0.0 (0.0-0.1) K/uL Nucleated RBC % 0.0 /100WBC Nucleated RBCs # 0 K/uL Lactate 1.2 (0.20-2.00) mmol/L Sodium 140 (136-148) mmol/L Potassium 4.0 (3.5-5.1) mmol/L Chloride 101 (98-107) mmol/L Carbon Dioxide 27.6 (21.0-32.0) mmol/L BUN 15 (7.0-18.0) mg/dL Creatinine 1.1 (0.8-1.3) mg/dL Est Cr Clr Drug Dosing 80.32 mL/min Estimated GFR (MDRD) > 60.0 ml/min Glucose 149 H (74-106) mg/dL Calcium 8.6 (8.5-10.1) mg/dL Total Bilirubin 0.6 (0.2-1.0) mg/dL AST 12 L (15-37) IU/L ALT 23 (14-63) IU/L Alkaline Phosphatase 73 (46-116) U/L Total Protein 8.4 H (6.4-8.2) g/dL Albumin 3.8 (3.4-5.0) g/dL Globulin 4.6 H (2.6-4.0) g/dL Albumin/Globulin Ratio 0.8 L (0.9-1.6) Urine Color Urine Appearance Urine pH (5.0-8.0) Ur Specific [place] (1.001-1.035) Urine Protein (NEGATIVE) mg/dL Urine Glucose (UA) (NEGATIVE) mg/dL Urine Ketones (NEGATIVE) mg/dL Urine Occult Blood (NEGATIVE) Urine Nitrite (NEGATIVE) Urine Bilirubin (NEGATIVE) Urine Urobilinogen (<2.0) EU/dL Ur Leukocyte Esterase (NEGATIVE) Urine RBC (0-2/HPF) Urine WBC (0-5/HPF) Ur Epithelial Cells (NONE-FEW) Urine Bacteria (NEGATIVE) 12/10/20 Range/Units 03:35 WBC (4.0-11.0) K/uL RBC (4.50-5.90) M/uL Hgb (13.0-17.0) g/dL Hct (38.0-50.0) % MCV (80.0-98.0) fL MCH (27.0-32.0) pg MCHC (31.0-37.0) g/dL RDW Std Deviation (28.0-62.0) fl RDW Coeff of Basil (11.0-15.0) % Plt Count (150-400) K/uL MPV (7.40-12.00) fL Neut % (Auto) (48.0-80.0) % Lymph % (Auto) (16.0-40.0) % Crosby % (Auto) (0.0-15.0) % Eos % (Auto) (0.0-7.0) % Baso % (Auto) (0.0-1.5) % Neut # (Auto) (1.4-5.7) K/uL Lymph # (Auto) (0.6-2.4) K/uL Crosby # (Auto) (0.0-0.8) K/uL Eos # (Auto) (0.0-0.7) K/uL Baso # (Auto) (0.0-0.1) K/uL Nucleated RBC % /100WBC Nucleated RBCs # K/uL Lactate (0.20-2.00) mmol/L Sodium (136-148) mmol/L Potassium (3.5-5.1) mmol/L Chloride (98-107) mmol/L Carbon Dioxide (21.0-32.0) mmol/L BUN (7.0-18.0) mg/dL Creatinine (0.8-1.3) mg/dL Est Cr Clr Drug Dosing mL/min Estimated GFR (MDRD) ml/min Glucose (74-106) mg/dL Calcium (8.5-10.1) mg/dL Total Bilirubin (0.2-1.0) mg/dL AST (15-37) IU/L ALT (14-63) IU/L Alkaline Phosphatase (46-116) U/L Total Protein (6.4-8.2) g/dL Albumin (3.4-5.0) g/dL Globulin (2.6-4.0) g/dL Albumin/Globulin Ratio (0.9-1.6) Urine Color YELLOW Urine Appearance CLEAR Urine pH 6.0 (5.0-8.0) Ur Specific [place] 1.010 (1.001-1.035) Urine Protein NEGATIVE (NEGATIVE) mg/dL Urine Glucose (UA) NEGATIVE (NEGATIVE) mg/dL Urine Ketones NEGATIVE (NEGATIVE) mg/dL Urine Occult Blood TRACE-INTACT H (NEGATIVE) Urine Nitrite NEGATIVE (NEGATIVE) Urine Bilirubin NEGATIVE (NEGATIVE) Urine Urobilinogen 0.2 (<2.0) EU/dL Ur Leukocyte Esterase TRACE H (NEGATIVE) Urine RBC 1-4 (0-2/HPF) Urine WBC 0-3 (0-5/HPF) Ur Epithelial Cells RARE (NONE-FEW) Urine Bacteria FEW (NEGATIVE) Meds: Medications Discontinued Medications Generic Name Dose Route Start Last Admin Trade Name Jdq PRN Reason Stop Dose Admin Cephalexin 500 mg 12/10/20 03:56 12/10/20 04:05 Keflex PO 12/10/20 03:57 500 mg ONETIME ONE Administration Lactated Ringer's 1,000 mls @ 999 mls/hr 12/09/20 23:15 12/09/20 23:15 Ringers, Lactated IV 999 mls/hr ASDIRECTED MARY Administration Iopamidol 100 ml 12/10/20 00:28 12/10/20 00:28 Isovue Multipack-370 (76%) IVPUSH 12/10/20 00:29 100 ml ONETIME STA Administration Morphine Sulfate 4 mg 12/09/20 23:05 12/09/20 23:15 Morphine IVPUSH 12/09/20 23:06 4 mg ONETIME ONE Administration Morphine Sulfate 4 mg 12/10/20 02:14 12/10/20 02:25 Morphine IVPUSH 03/08/21 02:15 4 mg ONETIME ONE Administration Departure - Departure Time of Disposition: 04:04 Disposition: Home, Self-Care 01 Condition: Fair Clinical Impression: Hernia, Nephrolithiasis Hydronephrosis Qualifiers: Hydronephrosis type: with renal calculous obstruction Qualified Code(s): N13.2 - Hydronephrosis with renal and ureteral calculous obstruction - Discharge Information *PRESCRIPTION DRUG MONITORING PROGRAM REVIEWED*: No *COPY OF PRESCRIPTION DRUG MONITORING REPORT IN PATIENT LANCE: No Prescriptions: cephALEXin [Cephalexin] 500 mg PO BID #14 capsule Tamsulosin [Tamsulosin 24 Hr] 0.4 mg PO DAILY #5 cap.er Instructions: Hernia, Adult, Kidney Stones, [id number], Hydronephrosis Referrals: Ezequiel Lockett MD [Primary Care Provider] - Forms: ED Department Discharge Additional Instructions: You evaluate today on an emergent basis. At this time your hernias were reducible by Dr. Cope. At this time you requested that you would follow-up with your surgeon. I do recommend you contact them tomorrow. In addition you were found to have a kidney stone in your left ureter of your left kidney. There was some bacteria in your urine therefore we started you on antibiotics. I did speak with the urologist and he wants you to follow-up outpatient this week. Number is provided below. If you have any worsening pain, fevers, vomiting, or abdominal pain please return to the emergency department. [facility] - Urology [address] [place] [id number] [facility] - Primary Care [address] [place] [id number] [address] [facility] - General Surgery Professional Building [address] [place] [address], [address] [place] [address] The patient is informed of any results of their evaluation and diagnostic workup and all questions are answered. They are given discharge instructions and return precautions. The patient is stable for discharge. The patient states they understand and agree with the plan and that they will return if their symptoms get worse or if they have any new concerns. The following information is given to patients seen in the emergency department who are being discharged to home. This information is to outline your options for follow-up care. We provide all patients seen in our emergency department with a follow-up referral. The need for follow-up, as well as the timing and circumstances, are variable depending upon the specifics of your emergency department visit. If you don't have a primary care physician on staff, we will provide you with a referral. We always advise you to contact your personal physician following an emergency department visit to inform them of the circumstance of the visit and for follow-up with them and/or the need for any referrals to a consulting specialist. The emergency department will also refer you to a specialist when appropriate. This referral assures that you have the opportunity for follow-up care with a specialist. All of these measure are taken in an effort to provide you with optimal care, which includes your follow-up. Under all circumstances we always encourage you to contact your private physician who remains a resource for coordinating your care. When calling for follow-up care, please make the office aware that this follow-up is from your recent emergency room visit. If for any reason you are refused follow-up, please contact the [facility] Emergency Department at and asked to speak to the emergency department charge nurse. Sepsis Event Note (ED) - Evaluation Sepsis Screening Result: No Definite Risk
--- NOTE | 2020-12-10 09:45 | CONS ---
DATE OF CONSULTATION: 12/10/2020 DATE OF : 1975 PRIMARY CARE PHYSICIAN: Ezequiel Lockett HISTORY OF PRESENT ILLNESS: The patient is a pleasant 45-year-old gentleman. I was consulted because of an incarcerated ventral hernia. The patient is a somewhat vague historian, but between him and his sister, it sounds like the patient has a history of strangulated hernia 2 years ago. This required a bowel resection, which then leaked and developed a fistula. The patient has had multiple surgeries, but the fistula was fixed. He reports that the hernias were never fixed with mesh because of the infection. For the past year or so, he has noticed a hernia that comes in and out, but over the last couple of weeks, he has noticed one in his upper mid abdomen being more tender and sore. The pain kind of comes and goes. Over the last 2 to 3 days, it has become more firm and tender to palpation. He came in to the ER for evaluation. The patient had a CT scan which did show he had multiple abdominal wall hernias. He had about a 10 cm epigastric ventral hernia left of the midline that contained some transverse colon with possible partial obstruction. There was another hernia more to the right of the lower midline with some small bowel. CT scan shows a third hernia inferior with fat only. I am looking at the CT scan myself. It looks like there are 1 or 2 other small fat-containing hernia defects also. The patient says his last bowel movement was today, said that it was liquid. The patient says that is his usual bowel movement ever since his surgery 2 years ago. He mainly has loose stools. No blood in it. The patient denies any real nausea and vomiting. He said he had some dry heaves the other day. Denies any fevers or chills. PAST MEDICAL HISTORY: Significant for diabetes and hypertension. Sleep apnea; he does wear his CPAP. PAST SURGICAL HISTORY: 1. Eye surgery. 2. Ventral hernia repair followed by multiple surgeries for fistula and abscesses. CURRENT HOME MEDICATIONS: The patient states the medicines metformin and another one for hypertension, although he has not been taking them lately. SOCIAL HISTORY: The patient smokes a pack of cigarettes per day. Denies any illicit drug use. Denies any alcohol use. FAMILY HISTORY: Mother with leukemia. REVIEW OF SYSTEMS: Complete 12+ review of systems done, was negative except for HPI. GENITOURINARY: The patient states he often has to go and has a lower pressure over his bladder he feels. IMAGING: Upon review of the imaging again has abdominal hernias as mentioned, also has obstructing kidney stone on the left side and a stable 2.1 cm left adrenal nodule. PHYSICAL EXAMINATION: GENERAL: The patient is lying comfortably in his ER bed. He is alert and oriented. No acute distress. VITALS: Temperature is 96.8, pulse is 84, blood pressure is 134/78, and 94% on room air. ABDOMEN: Soft. He does have obesity with a large pannus. On his left epigastric midline above his umbilicus, we actually could see a hernia bulge. He also has a well-healed midline incision in the lower right abdomen. NEUROLOGIC: No gross motor or neurologic deficit noted. LABORATORY DATA: White cell count is 15.48, hemoglobin is 15.3, platelet count is 315. Lactic acid 1.2, glucose is 149. ASSESSMENT AND PLAN: This is a pleasant 45-year-old gentleman with history of ventral hernias with bowel resection and fistula. He came in with a longstanding hernia that has been causing more issues. I did place the ventral hernia under some gentle traction and it did reduce. The patient felt much better. His hernia in his right lower abdomen also feels reducible and is nontender. As stated above, the patient does have multiple hernias, 2 of them are larger in size and did contain some bowel, both of them were reduced. It is difficult to feel the actual size of the defect because of the patients body habitus. I did go over with the patient that it is important that he follow up with Surgery to get these repaired so he does not end up like 2 years ago with abscesses and strangulated hernias. I also went over that it is important that if he feels sick or has discomfort or pain that he return to the ER right away. The patient understands. The patient says he will go to his primary tomorrow for followup. I did offer to treat him for potential elective hernia repair however with the size and number of hernias he may need to be at a tertiary center. The patient would rather go back to [place] where they fixed his fistulas in the past. Also went over the patient that it is important that he continue to try to quit his smoking, and it is very important that he takes his diabetic and hypertension medicines because these will help reduce the chance of an infection after his hernia repair. The patient understands. I did discuss this with the ER physician. I did check on the patient an hour after reduction and abdomen is still nontender, hernias still fell like they are reduced. No signs of any peritonitis. JULITA / ALEXYS /[id number]
== END 2020-12-10 04:20 | disposition home or self-care (01) ==
LOC: MW.ED 21:33
DX: K43.9 Ventral hernia without obstruction or gangrene (principal); N13.2 Hydronephrosis with renal and ureteral calculous obstruction; I10 Essential (primary) hypertension; E66.9 Obesity, unspecified; Z68.43 Body mass index [BMI] 50.0-59.9, adult; Z72.0 Tobacco use; Z79.899 Other long term (current) drug therapy
CPT/HCPCS: 36415; 74177; 80053; 81001; 83605; 85025; 87086; 96374; 96376; 99284; A9270; J2270; J7120; Q9967; 99283

== ENCOUNTER 2020-12-18 10:01 | Day surgery (SDC) | payer BC, MEDICAID ==
[~2020-12-18 10:01] MED LIST: Lactated Ringers 1,000 ML IV SCH; Sodium Chloride 0.9% 10 ML SDV IV PRN; Sodium Chloride 0.9% 10 ML Syringe FLUSH PRN; Sodium Chloride 0.9% 2.5 ML Syringe FLUSH PRN; ceFAZolin 2 GM in Premix Bag 1 BAG IV ONE
--- NOTE | 2020-12-18 10:29 | PCM.PREANE ---
Preanesthetic Assessment - Anesthesia/Transfusion/Family Hx Anesthesia History: Prior Anesthesia Without Reaction Family History of Anesthesia Reaction: No Transfusion History: No Prior Transfusion(s) - Review of Systems General: No Symptoms Pulmonary: No Symptoms Cardiovascular: No Symptoms Gastrointestinal: No Symptoms Neurological: No Symptoms Other: Reports: None - Physical Assessment NPO Status Date: 12/18/20 NPO Status Time: 07:00 (medication with sip of water) Vital Signs: bP 107/58, P 81, RR 16, SPO2 96%, TEMP 36.2 Height: 1.75 m Weight: 149.685 kg ASA Class: 3 Mental Status: Alert & Oriented x3 Airway Class: Mallampati = 2 Dentition: Reports: Broken Tooth/Teeth, Caries Thyro-Mental Finger Breadths: 3 Mouth Opening Finger Breadths: 3 ROM/Head Extension: Full Lungs: Clear to Auscultation, Normal Respiratory Effort Cardiovascular: Regular Rate, Regular Rhythm - Allergies Allergies/Adverse Reactions: Allergies Allergy/AdvReac Type Severity Reaction Status Date / Time No Known Allergies Allergy Verified 12/12/20 09:45 - Acknowledgements Anesthesia Type Planned: General Anesthesia (The patient understands and accepts the anesthetic risks and benefits of General Anesthesia. All questions answered. Consent signed. ) Pt an Appropriate Candidate for the Planned Anesthesia: Yes Alternatives and Risks of Anesthesia Discussed w Pt/Guardian: Yes Pt/Guardian Understands and Agrees with Anesthesia Plan: Yes PreAnesthesia Questionnaire HEENT History: Reports: None Cardiovascular History: Reports: Hypertension Other Cardiovascular History: occasionally take Lisinopril Respiratory History: Reports: Sleep Apnea, Other (See Below) (chronic tobacco use for 30 years.) Other Respiratory History: uses CPAP every night Gastrointestinal History: Reports: Other (See Below) (denies gerd) Other Gastrointestinal History: Hernia, Umbillical Genitourinary History: Reports: Renal Calculus Musculoskeletal History: Reports: Fracture Other Musculoskeletal History: hx of fx finger Neurological History: Reports: None Psychiatric History: Reports: None Endocrine/Metabolic History: Reports: Diabetes, Type II ([id number]), Obesity/BMI 30+ (BMI 48.8) Other Endocrine/Metabolic History: diabetic, pt. 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" GI Surgical History: Reports: Colon, Hernia, Inguinal Other GI Surgeries/Procedures: hx of Colectomy , hernia repair- currently has incisional hernia repair Other Male Surgeries/Procedures: has kidney stone in left upper ureteral - SUBSTANCE USE Tobacco Use Status *Q: Current Every Day Tobacco User Tobacco Use Within Last Twelve Months: Cigarettes Days Per Week of Alcohol Use: 0 Recreational Drug Use History: No - HOME MEDS Home Medications: Home Meds Hydrocodone/Acetaminophen [Hydrocodon-Acetaminophen 5-325] 5 mg PO Q6HR 11/12/18 [History] Tamsulosin [Tamsulosin 24 Hr] 0.4 mg PO DAILY #5 cap.er 12/10/20 [Rx] cephALEXin [Cephalexin] 500 mg PO BID #14 capsule 12/10/20 [Rx] lisinopriL [Lisinopril] 20 mg PO DAILY 12/12/20 [History] metFORMIN [Glucophage XR] 500 mg PO BID 12/12/20 [History] - CURRENT (IN HOUSE) MEDS Current Meds: Current Medications Lactated Ringer's (Ringers, Lactated) 1,000 mls @ 100 mls/hr IV ASDIRECTED MARY Sodium Chloride (Sodium Chloride 0.9% 2.5 Ml Syringe) 2.5 ml FLUSH ASDIRECTED PRN PRN Reason: Keep Vein Open Sodium Chloride (Sodium Chloride 0.9% 10 Ml Sdv) 10 ml IV ASDIRECTED PRN PRN Reason: IV Use Sodium Chloride (Sodium Chloride 0.9% 10 Ml Syringe) 10 ml FLUSH ASDIRECTED PRN PRN Reason: Keep Vein Open Discontinued Medications Cefazolin Sodium/Dextrose 2 gm (/ Premix) 50 mls @ 100 mls/hr IV ONCALL ONE Stop: 12/18/20 06:29
[2020-12-18] MEDS ORDERED: Midazolam 1 MG/ML 2 ML SDV ONE ×2 (10:45→12:20)
[2020-12-18] MEDS ORDERED: Lidocaine 2% 5 ML SDV ONE (10:45)
[2020-12-18] MEDS ORDERED: Glycopyrrolate 0.2 MG/ML SDV ONE (10:45)
[2020-12-18] MEDS ORDERED: Ondansetron 4 MG/2 ML SDV ONE (10:45)
[2020-12-18] MEDS ORDERED: fentaNYL 100 MCG/2 ML SDV ONE (10:45)
[2020-12-18] MEDS ORDERED: Propofol 200 MG/20 ML SDV ONE (10:45)
[2020-12-18] MEDS ORDERED: Ketorolac 30 MG/ML SDV ONE (10:45)
[2020-12-18] MEDS ORDERED: ceFAZolin 1 GM Vial ONE (10:50)
[2020-12-18] MEDS ORDERED: Sodium Chloride 0.9% 20 ML ONE (10:50)
[2020-12-18] MEDS ORDERED: Iopamidol 408 MG/ML 20 ML SDV ONE (11:35)
[2020-12-18] MEDS ORDERED: EPINEPHrine 1:10,000 1 MG/10 ML Syringe IVPUSH PRN (13:08)
[2020-12-18] MEDS ORDERED: fentaNYL 100 MCG/2 ML SDV IVPUSH PRN (13:08)
[2020-12-18] MEDS ORDERED: Albuterol 0.083% 2.5 MG/3 ML Neb Soln NEB PRN (13:08)
[2020-12-18] MEDS ORDERED: Naloxone 0.4 MG/ML Syringe IVPUSH PRN (13:08)
[2020-12-18] MEDS ORDERED: Atropine 0.1 MG/ML 10 ML Syringe IVPUSH PRN ×2 (13:08)
[2020-12-18] MEDS ORDERED: 50% Dextrose in Water 50 ML Syringe IVPUSH PRN (13:08)
[2020-12-18] MEDS ORDERED: Acetaminophen/HYDROcodone 325-5 MG Tab PO PRN (13:09)
--- NOTE | 2020-12-18 13:31 | PCM.POSTAN ---
POST ANESTHESIA ASSESSMENT - MENTAL STATUS Mental Status: Alert, Oriented - VITAL SIGNS Vital Signs: Last Vital Signs Temp 36.2 C 12/18/20 13:04 Pulse 80 12/18/20 13:26 Resp 15 12/18/20 13:26 BP 101/49 L 12/18/20 13:26 Pulse Ox 96 12/18/20 13:26 - RESPIRATORY Respiratory Status: Respiratory Rate WNL, Airway Patent, O2 Saturation Stable - CARDIOVASCULAR CV Status: Pulse Rate WNL, Blood Pressure Stable - GASTROINTESTINAL GI Status: No Symptoms - PAIN Pain Score: 0 - POST OP HYDRATION Hydration Status: Adequate & Stable - OBSERVATIONS Free Text/Narrative:: The patient appears comfortable, and in no acute distress. There were no apparent anesthetic complications at this time.
--- NOTE | 2020-12-18 13:34 | OR ---
SURGEON: Damien Horton M.D. DATE OF PROCEDURE: 12/18/2020 PREOPERATIVE DIAGNOSIS: Left upper ureteral stone, 7 mm. POSTOPERATIVE DIAGNOSIS: Left upper ureteral stone, 7 mm. OPERATION: Cystoscopy and double-J stent placement. DESCRIPTION OF PROCEDURE: The patient was given general anesthesia, he was placed in dorsal lithotomy position, prepped and draped in sterile drapes. Cystourethroscopy was done, that was normal. A guidewire was attempted, but would not work, so we put a Glidewire in with the help of the rigid ureteroscope. Over the Glidewire, a 6- Indonesian 26 cm double-J stent was placed. Position was confirmed on fluoroscopy. The bladder was emptied, and the patient was moved to recovery room in good condition. Of note is the fact that the stone could not be seen on fluoro. The patient is morbidly obese, I certainly could not help, so he will be coming back to the office in 2 weeks for me to plan the next step. However, he will have a KUB and a CT scan of abdomen and pelvis to see where the stone exactly is to plan the next phase of his treatment. TESS / ALEXYS /[id number]
--- NOTE | 2020-12-18 13:58 | PCM48HPAN ---
Post Anesthesia Note - EVALUATION WITHIN 48HRS OF ANESTHETIC Vital Signs in Normal Range: Yes Patient Participated in Evaluation: Yes Respiratory Function Stable: Yes Airway Patent: Yes Cardiovascular Function Stable: Yes Hydration Status Stable: Yes Pain Control Satisfactory: Yes Nausea and Vomiting Control Satisfactory: Yes Mental Status Recovered: Yes Vital Signs: Last Vital Signs Temp 36.5 C 12/18/20 13:35 Pulse 77 12/18/20 13:35 Resp 16 12/18/20 13:35 BP 101/51 L 12/18/20 13:35 Pulse Ox 94 L 12/18/20 13:35 - COMMENTS/OBSERVATIONS Free Text/Narrative:: states breathing is good.
[2020-12-18] MEDS ORDERED: metFORMIN 500 MG Tab PO SCH (17:00)
[2020-12-18] MEDS ORDERED: Cephalexin 500 MG Cap PO SCH (21:00)
[2020-12-19] MEDS ORDERED: Tamsulosin 0.4 MG Cap.ER PO SCH (09:00)
[2020-12-19] MEDS ORDERED: Lisinopril 10 MG Tab PO SCH (09:00)
--- NOTE | 2020-12-20 11:03 | CR ---
INDICATION: Ureteral stent placement. TECHNIQUE: Retrograde pyelogram with stent placement. IMPRESSION: Fluoroscopy was provided for purposes of ureteral stent placement. Fluoroscopy time 19.7 seconds. Two images were captured. Dictated by Avlin Loera MD @ Dec 20 2020 11:02AM Signed by Dr. Alvin Loera @ Dec 20 2020 11:02AM
== END 2020-12-18 14:19 | disposition home or self-care (01) ==
LOC: MW.SDS 10:01
PROVIDERS: ATTEND Urology
DX: N20.1 Calculus of ureter (principal); I10 Essential (primary) hypertension; E11.9 Type 2 diabetes mellitus without complications; F17.210 Nicotine dependence, cigarettes, uncomplicated; E66.01 Morbid (severe) obesity due to excess calories; K43.9 Ventral hernia without obstruction or gangrene; G47.30 Sleep apnea, unspecified; Z79.899 Other long term (current) drug therapy; Z98.890 Other specified postprocedural states; Z68.42 Body mass index [BMI] 45.0-49.9, adult
CPT/HCPCS: 52332; 76000; 82962; J0690; J2250; J2405; J2704; J3490; J7120; Q9966; J1885; J3010

== ENCOUNTER 2021-04-19 22:39 | Emergency (ER) | payer BC, MEDICAID ==
[2021-04-19] MEDS ORDERED: Morphine 4 MG/ML Syringe IVPUSH ONE (22:48)
[2021-04-19 23:20] LABS: BLOOD UREA NITROGEN,BUN 14 mg/dL (7.0-18.0); CARBON DIOXIDE,CO2 26.1 mmol/L (21.0-32.0); CHLORIDE,CL 102 mmol/L (98-107); GLUCOSE RANDOM 164 mg/dL (74-106); POTASSIUM,K 3.8 mmol/L (3.5-5.1); SODIUM,NA 137 mmol/L (136-148)
[2021-04-19] MEDS ORDERED: Iopamidol 755 MG/ML 500 ML Multipack Bottle IVPUSH STA (23:32)
--- NOTE | 2021-04-20 00:54 | CT ---
For Patients: As a result of the Century Cures Act, medical imaging exams and procedure reports are released immediately into your electronic medical record. You may view this report before your referring provider. If you have questions, please contact your health care provider. INDICATION: Abdominal pain. Ventral hernia. Evaluate for incarcerated hernia. CT ABDOMEN AND PELVIS WITH CONTRAST TECHNIQUE: Multidetector CT imaging was performed through the abdomen and pelvis following intravenous contrast administration using 100 mL Isovue 370. Coronal and sagittal reconstructions were generated. COMPARISON: 02/05/2021 CT abdomen and pelvis. FINDINGS: Lower chest: Minimal bibasilar lung atelectasis. Liver: Diffuse fatty infiltration of the liver. Gallbladder and bile ducts: Cholelithiasis without evidence of cholecystitis. No biliary dilation identified. Pancreas: Unremarkable. Spleen: Normal. Adrenals: Stable small left adrenal nodule, which showed density on the prior noncontrast CT consistent with benign adenoma. Unremarkable right adrenal. Kidneys, ureters, and urinary bladder: Nonobstructing 7 x 4 x 5 millimeter stone in the left renal pelvis just above the ureteropelvic junction, without hydronephrosis. Small bilateral lower pole nonobstructing intrarenal stones are also present. Previously seen left ureteral stent has been removed. No bladder mass or definite wall thickening. Gastrointestinal tract: Status post right hemicolectomy with ileocolic anastomosis in the right mid abdomen. A few colon diverticula without evidence of diverticulitis. Abdominal wall: No significant change in 11 centimeter epigastric ventral hernia to the left of midline containing a segment of the transverse colon, 9 centimeter bowel-containing right mid abdominal ventral hernia, and 7 centimeter right mid abdominal ventral hernia containing only fat. No definite evidence of strangulation or bowel obstruction at any of these hernias. Vascular structures: Normal caliber abdominal aorta with minimal atherosclerotic changes at its bifurcation. Peritoneum: No free air, abscess, or significant free fluid. Lymph nodes: No pathologically enlarged nodes identified. Reproductive organs: Upper normal prostate size. Bones: Mild spinal degenerative changes. IMPRESSION: 1. Stable ventral hernias as detailed above, two of which contain bowel, without definite evidence of strangulation or bowel obstruction. 2. Nonobstructing 7 x 4 x 5 millimeter stone in the left renal pelvis just above the ureteropelvic junction. Small bilateral nonobstructing intrarenal stones are also present. 3. Nonacute additional findings as detailed above. ELYSSA RAMIREZ MD [facility] Dictated by Emmanuel Ramirez MD @ 04/20/2021 12:52:31 AM Please note that all CT scans at this facility use dose modulation, iterative reconstruction, and/or weight-based dosing when appropriate to reduce radiation dose to as low as reasonably achievable. Dictated by: Emmanuel Ramirez MD @ 04/20/2021 00:53:26 (Electronically Signed)
--- NOTE | 2021-04-20 01:20 | EDM.PDOC ---
ED HPI GENERAL MEDICAL PROBLEM - General Chief Complaint: Gastrointestinal Problem Stated Complaint: LT SIDE PAIN Time Seen by Provider: 04/19/21 23:10 - History of Present Illness INITIAL COMMENTS - FREE TEXT/NARRATIVE: CHIEF COMPLAINT(S): Abdominal pain HISTORY OF PRESENT ILLNESS: This is a 45-year-old man with a past medical history of multiple ventral hernias with a prior visit to myself who was evaluate by general surgery and told to follow-up presents to the emergency department with abdominal pain. Patient states that he did follow-up with surgeon Dr. Ureña who referred him to [facility] in [place]. He states that they were amenable to repairing his hernias however they discussed them that they would like him to lose approximately 100 pounds prior to this and that he would also need a gastric sleeve. He states that since discharge in [place] he has been trying to lose weight however he is experiencing severe abdominal pain throughout his abdomen which is limiting his ability to exercise and lose weight. He denies any nausea, vomiting diarrhea, hematochezia, hematemesis, bilious emesis. He denies any fevers. He denies any chest pain or shortness of breath. He rates his pain as 10 out of 10 and is worse with movement. He states that the hernia still seems to be stuck however he is having continued pain. He has not yet tried any pain medication. REVIEW OF SYSTEMS: Constitutional: Denies fever, chills. Eyes: Denies eye pain Ears, Nose, Mouth, & Throat: Denies earache Cardiovascular: Denies chest pain Respiratory: Denies shortness of breath Gastrointestinal: Positive for hernia pain. Denies nausea, vomiting, diarrhea, hematochezia, hematemesis, bilious emesis Genitourinary: Denies hematuria Skin:Denies a rash MSK: Denies joint pain Neurological: Denies blurred vision Psychiatric: Denies depression PAST MEDICAL HISTORY: As per history of present illness and as reviewed below otherwise noncontributory. SURGICAL HISTORY: As per history of present illness and as reviewed below otherwise noncontributory. SOCIAL HISTORY: As per history of present illness and as reviewed below otherwise noncontributory. FAMILY HISTORY: As per history of present illness and as reviewed below otherwise noncontributory. EXAMINATION OF ORGAN SYSTEMS/BODY AREAS: Constitutional: Blood pressure is 140/80, heart rate 94, respiratory rate 20 with an oxygen saturation of 96% on room air. Temperature 36.3 General: Gentleman who does not appear to be in acute distress Psychiatric: Appropriate mood and affect. Intermittently tearful Eyes: No scleral icterus or conjunctival erythema ENMT: Moist mucous membranes. No pharyngeal erythema Cardiovascular: Regular, rate, and rhythm. No gallops, murmurs, or rubs. Bilateral upper extremity pulses symmetric and intact. No peripheral edema. No JVD. Respiratory: Lungs clear to auscultation bilaterally. No wheezes, rales, or rhonchi. Gastrointestinal: Soft, obese, nondistended. There is mild tenderness to palpation along the anterior abdominal wall. There is a ventral hernia that is visible just lateral to the left midline. This hernia is nontender and easily reducible. No rebound or guarding. Negative Worthy's and McBurney's. Genitourinary: No suprapubic tenderness Musculoskeletal: Normal range of motion. Skin: No lesions or abrasions. Neurological: Alert, GCS 15 MEDICAL DECISION MAKING AND COURSE IN THE ED WITH INTERPRETATION/REVIEW OF DIAGNOSTIC STUDIES: This is a 45-year-old man with a past medical history of multiple ventral wall hernias who comes to the emergency department with hernia pain who has normal vital signs and no obvious evidence of strangulation. The patient does have multiple other abdominal wall hernias for which I cannot palpate. Will obtain a CT abdomen pelvis to eval evaluate for strangulation. Will obtain CBC, CMP. We will provide the patient with morphine for pain relief. Laboratory: CBC is unremarkable. CMP reveals hyperglycemia at 164 otherwise unremarkable. The radiological images were viewed by myself along with reading the report from the radiologist. CT abdomen pelvis with IV contrast reveals no evidence of hernia strangulation. There is ventral hernia 2 of which contain bowel without any evidence of strangulation or bowel obstruction. There is a nonobstructing millimeter stone in the left renal pelvis. Otherwise no acute finding. After imaging I did have a lengthy discussion with the patient at this time that does not appear that there is a strangulation of his bowel. I did discuss with him that I do not believe stronger pain medication is needed at this time. I did discuss with him that I would not be prescribing any opiates even though he did not ask them for me. I do believe the risks of opiates outweigh the benefits to this patient. I encouraged the patient to use Tylenol and Motrin and I discussed that we would provide him with an abdominal pelvic binder to help when he is exercising or ambulating. I did discuss that he should follow- up with his surgeons and if he wants a referral to [facility] that he needs to speak with Dr. Ureña. I discussed that he will also contact his primary care physician for this. Otherwise he should follow-up with them for continued pain management. He was unable to discharge at this time and had no further questions. DISPOSITION: The patient was discharged home in stable condition. The patient will follow up with General surgery your primary care physician in 3 to 5 days CONDITION: Fair PROCEDURES: None FINAL IMPRESSION(S)/DIAGNOSES: 1. Acute on chronic ventral abdominal hernia pain without any evidence of strangulation Bruce Pryor M.D. - Related Data Allergies Allergy/AdvReac Type Severity Reaction Status Date / Time No Known Allergies Allergy Verified 04/19/21 23:00 Home Meds: Home Meds Hydrocodone/Acetaminophen [Hydrocodon-Acetaminophen 5-325] 5 mg PO Q6HR 11/12/18 [History] Tamsulosin [Tamsulosin 24 Hr] 0.4 mg PO DAILY #5 cap.er 12/10/20 [Rx] cephALEXin [Cephalexin] 500 mg PO BID #14 capsule 12/10/20 [Rx] lisinopriL [Lisinopril] 20 mg PO DAILY 12/12/20 [History] metFORMIN HCl [Glucophage] 500 mg PO BIDMEALS 12/18/20 [History] Past Medical History HEENT History: Reports: None Cardiovascular History: Reports: Hypertension Other Cardiovascular History: occasionally take Lisinopril Respiratory History: Reports: Sleep Apnea, Other (See Below) Other Respiratory History: uses CPAP every night Gastrointestinal History: Reports: Other (See Below) Other Gastrointestinal History: Hernia, Umbillical Genitourinary History: Reports: Renal Calculus Musculoskeletal History: Reports: Fracture Other Musculoskeletal History: hx of fx finger Neurological History: Reports: None Psychiatric History: Reports: None Endocrine/Metabolic History: Reports: Diabetes, Type II, Obesity/BMI 30+ Other Endocrine/Metabolic History: diabetic, pt. 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" Cardiovascular Surgical History: Reports: None Respiratory Surgical History: Reports: None GI Surgical History: Reports: Colon, Hernia, Inguinal Other GI Surgeries/Procedures: hx of Colectomy , hernia repair- currently has incisional hernia repair Male Surgical History: Reports: None Other Male Surgeries/Procedures: has kidney stone in left upper ureteral Endocrine Surgical History: Reports: None Neurological Surgical History: Reports: None Musculoskeletal Surgical History: Reports: None Oncologic Surgical History: Reports: Biopsy of Breast Dermatological Surgical History: Reports: None Social & Family History - Family History Family Medical History: No Pertinent Family History - Tobacco Use Tobacco Use Status *Q: Never Tobacco User - Caffeine Use Caffeine Use: Reports: None - Recreational Drug Use Recreational Drug Use: No ED ROS GENERAL - Review of Systems Review Of Systems: See Below ED EXAM, GENERAL - Physical Exam Exam: See Below Course - Vital Signs Last Recorded V/S: Last Vital Signs Temp 36.3 C 04/19/21 22:58 Pulse 94 04/19/21 22:58 Resp 20 04/19/21 22:58 BP 140/80 04/19/21 22:58 Pulse Ox 96 04/19/21 22:58 - Orders/Labs/Meds Labs: Laboratory Tests 04/19/21 04/19/21 04/19/21 Range/Units 22:52 22:52 22:52 WBC 10.61 (4.0-11.0) K/uL RBC 5.22 (4.50-5.90) M/uL Hgb 14.5 (13.0-17.0) g/dL Hct 42.5 (38.0-50.0) % MCV 81.4 (80.0-98.0) fL MCH 27.8 (27.0-32.0) pg MCHC 34.1 (31.0-37.0) g/dL RDW Std Deviation 40.1 (28.0-62.0) fl RDW Coeff of Basil 13 (11.0-15.0) % Plt Count 296 (150-400) K/uL MPV 9.40 (7.40-12.00) fL Neut % (Auto) 60.8 (48.0-80.0) % Lymph % (Auto) 31.0 (16.0-40.0) % [place] % (Auto) 6.1 (0.0-15.0) % Eos % (Auto) 1.6 (0.0-7.0) % Baso % (Auto) 0.5 (0.0-1.5) % Neut # (Auto) 6.5 H (1.4-5.7) K/uL Lymph # (Auto) 3.3 H (0.6-2.4) K/uL [place] # (Auto) 0.7 (0.0-0.8) K/uL Eos # (Auto) 0.2 (0.0-0.7) K/uL Baso # (Auto) 0.1 (0.0-0.1) K/uL Nucleated RBC % 0.0 /100WBC Nucleated RBCs # 0 K/uL Sodium 137 (136-148) mmol/L Potassium 3.8 (3.5-5.1) mmol/L Chloride 102 (98-107) mmol/L Carbon Dioxide 26.1 (21.0-32.0) mmol/L BUN 14 (7.0-18.0) mg/dL Creatinine 1.1 (0.8-1.3) mg/dL Est Cr Clr Drug Dosing TNP Estimated GFR (MDRD) > 60.0 ml/min Glucose 164 H (74-106) mg/dL Lactic Acid 1.2 (0.4-2.0) mmol/L Calcium 9.2 (8.5-10.1) mg/dL Magnesium 1.9 (1.8-2.4) mg/dL Total Bilirubin 0.3 (0.2-1.0) mg/dL AST 18 (15-37) IU/L ALT 26 (14-63) IU/L Alkaline Phosphatase 78 (46-116) U/L Total Protein 8.1 (6.4-8.2) g/dL Albumin 3.9 (3.4-5.0) g/dL Globulin 4.2 H (2.6-4.0) g/dL Albumin/Globulin Ratio 0.9 (0.9-1.6) Meds: Medications Discontinued Medications Generic Name Dose Route Start Last Admin Trade Name Freq PRN Reason Stop Dose Admin Iopamidol 100 ml 04/19/21 23:32 04/19/21 23:46 Iopamidol 755 Mg/Ml 500 Ml Multipack Bottle IVPUSH 04/19/21 23:33 100 ml ONETIME STA Administration Morphine Sulfate 4 mg 04/19/21 22:48 04/19/21 23:05 Morphine 4 Mg/Ml Syringe IVPUSH 04/19/21 22:49 4 mg ONETIME ONE Administration Departure - Departure Time of Disposition: 01:20 Disposition: Home, Self-Care 01 Condition: Fair Clinical Impression: Hernia - Discharge Information Instructions: Hernia, Adult, Abdominal Pain, Adult, [id number] Referrals: Avel Ray [Primary Care Provider] - Forms: ED Department Discharge Additional Instructions: Mr. Cheatham you were evaluated today on an emergent basis. At this time all of your lab work and your imaging was stable and your hernia was easily reducible. At this time as discussed this is a complex situation that is going to need multiple different individuals to help you. At this time I do not believe any opiates or stronger pain medications are needed as I believe the risks outweigh the benefits in this case. We did provide you with an abdominal binder which I need you to use to see if it does help your pain while you are exercising to help lose weight for your procedures. Given that you are not sure about the surgeon in [place] I would like you to follow-up with Dr. Ureña and your primary care physician to see if he can get referral to your place of choice. If you have any vomiting, fever, worsening abdominal pain please return to the emergency department. [facility] - Primary Care [address] [place] [id number] [facility] [address] [place] [id number] [facility] - General Surgery Professional Building [address] [place] [address], [address] [place] [address] The patient is informed of any results of their evaluation and diagnostic workup and all questions are answered. They are given discharge instructions and return precautions. The patient is stable for discharge. The patient states they u nderstand and agree with the plan and that they will return if their symptoms get worse or if they have any new concerns. The following information is given to patients seen in the emergency department who are being discharged to home. This information is to outline your options for follow-up care. We provide all patients seen in our emergency department with a follow-up referral. The need for follow-up, as well as the timing and circumstances, are variable depending upon the specifics of your emergency department visit. If you don't have a primary care physician on staff, we will provide you with a referral. We always advise you to contact your personal physician following an emergency department visit to inform them of the circumstance of the visit and for follow-up with them and/or the need for any referrals to a consulting specialist. The emergency department will also refer you to a specialist when appropriate. This referral assures that you have the opportunity for follow-up care with a specialist. All of these measure are taken in an effort to provide you with optimal care, which includes your follow-up. Under all circumstances we always encourage you to contact your private physician who remains a resource for coordinating your care. When calling for follow-up care, please make the office aware that this follow-up is from your recent emergency room visit. If for any reason you are refused follow-up, please contact the [facility] Emergency Department at and asked to speak to the emergency department charge nurse. Sepsis Event Note (ED) - Evaluation Sepsis Screening Result: No Definite Risk
== END 2021-04-20 01:35 | disposition home or self-care (01) ==
LOC: MW.ED 22:39
DX: K43.9 Ventral hernia without obstruction or gangrene (principal); E11.9 Type 2 diabetes mellitus without complications; E66.9 Obesity, unspecified; I10 Essential (primary) hypertension; Z68.30 Body mass index [BMI] 30.0-30.9, adult; Z79.84 Long term (current) use of oral hypoglycemic drugs; Z79.899 Other long term (current) drug therapy
CPT/HCPCS: 36415; 74177; 80053; 83605; 83735; 85025; 96374; 99284; J2270; Q9967; 99283

== ENCOUNTER 2021-06-17 17:52 | Emergency (ER) | payer BC, MEDICAID ==
[2021-06-17] MEDS ORDERED: Morphine 4 MG/ML Syringe IVPUSH ONE ×2 (19:55→22:52)
[2021-06-17] MEDS ORDERED: Ondansetron 4 MG/2 ML SDV IVPUSH ONE (19:55)
[2021-06-17] MEDS ORDERED: Sodium Chloride 0.9% 10 ML Syringe FLUSH PRN (19:55)
[2021-06-17] MEDS ORDERED: Sodium Chloride 0.9% 2.5 ML Syringe FLUSH PRN (19:55)
[2021-06-17] MEDS ORDERED: Lactated Ringers 1,000 ML IV ONE (19:55)
--- NOTE | 2021-06-17 20:03 | EDM.PDOC ---
ED HPI GENERAL MEDICAL PROBLEM - General Chief Complaint: Abdominal Pain Stated Complaint: ABDOMINAL PAIN Time Seen by Provider: 06/17/21 19:24 Source of Information: Reports: Patient History Limitations: Reports: No Limitations - History of Present Illness INITIAL COMMENTS - FREE TEXT/NARRATIVE: 46-year-old morbidly obese male with history of small bowel obstruction, DM2, BETHANY on CPAP, cholelithiasis, hemicolectomy, multiple hernia repairs presents with abdominal pain. Abdominal pain is diffuse, described as sharp rated 10/10, waxes and wanes since 4 PM today. When the pain comes on it lasts for seconds. Associated with nausea but denies fever, chills, vomiting, diarrhea. Patient has had previous surgery done [address] En Hudson, colorectal surgery at [facility]. ROS: A 10-point review of systems, other than pertinent positives and negatives as stated per HPI, is otherwise negative Past medical history: No additional pertinent history Past Surgical history: No additional pertinent history Social history: No additional pertinent history Family history: No additional pertinent history PHYSICAL EXAM General: AOx4, GCS = 15, morbidly obese, BMI = 51, mild distress HEENT: dry mucous membrane Neck: supple, no meningismus, no Kernig or Brudzinski Cardiac: S1S2 tachycardia Respiratory: CTAB, no crackles or rales, no wheezing Abdomen: Soft, mild diffuse tenderness, nonreducible LUQ ventral hernia, no rebound or guarding, nondistended, no pulsatile mass. Back: nontender Musculoskeletal: NVI distally, no deformity Neuro: No focal deficits - Related Data Allergies Allergy/AdvReac Type Severity Reaction Status Date / Time No Known Allergies Allergy Verified 04/19/21 23:00 Home Meds: Home Meds Hydrocodone/Acetaminophen [Hydrocodon-Acetaminophen 5-325] 5 mg PO Q6HR 11/12/18 [History] Tamsulosin [Tamsulosin 24 Hr] 0.4 mg PO DAILY #5 cap.er 12/10/20 [Rx] cephALEXin [Cephalexin] 500 mg PO BID #14 capsule 12/10/20 [Rx] lisinopriL [Lisinopril] 20 mg PO DAILY 12/12/20 [History] metFORMIN HCl [Glucophage] 500 mg PO BIDMEALS 12/18/20 [History] Past Medical History HEENT History: Reports: None Cardiovascular History: Reports: Hypertension Other Cardiovascular History: occasionally take Lisinopril Respiratory History: Reports: Sleep Apnea, Other (See Below) Other Respiratory History: uses CPAP every night Gastrointestinal History: Reports: Other (See Below) Other Gastrointestinal History: Hernia, Umbillical Genitourinary History: Reports: Renal Calculus Musculoskeletal History: Reports: Fracture Other Musculoskeletal History: hx of fx finger Neurological History: Reports: None Psychiatric History: Reports: None Endocrine/Metabolic History: Reports: Diabetes, Type II, Obesity/BMI 30+ Other Endocrine/Metabolic History: diabetic, pt. 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" Cardiovascular Surgical History: Reports: None Respiratory Surgical History: Reports: None GI Surgical History: Reports: Colon, Hernia, Inguinal Other GI Surgeries/Procedures: hx of Colectomy , hernia repair- currently has incisional hernia repair Male Surgical History: Reports: None Other Male Surgeries/Procedures: has kidney stone in left upper ureteral Endocrine Surgical History: Reports: None Neurological Surgical History: Reports: None Musculoskeletal Surgical History: Reports: None Oncologic Surgical History: Reports: Biopsy of Breast Dermatological Surgical History: Reports: None Social & Family History - Family History Family Medical History: No Pertinent Family History - Tobacco Use Tobacco Use Status *Q: Current Every Day Tobacco User Years of Tobacco use: 30 Packs/Tins Daily: 1 - Caffeine Use Caffeine Use: Reports: Coffee - Recreational Drug Use Recreational Drug Use: No ED ROS GENERAL - Review of Systems Review Of Systems: See Below (see dictation) ED EXAM, GENERAL - Physical Exam Exam: See Below (see dictation) Course - Vital Signs Last Recorded V/S: Last Vital Signs Temp 96.8 F L 06/18/21 03:24 Pulse 78 06/18/21 03:24 Resp 18 06/18/21 03:24 BP 116/67 06/18/21 03:24 Pulse Ox 93 L 06/18/21 03:24 - Orders/Labs/Meds Orders: Active Orders 24 hr Category Date Time Status Cardiac Monitoring [RC] . DIRECTED Care 06/17/21 19:55 Active Pulse Oximetry [RC] ASDIRECTED Care 06/17/21 19:55 Active Lactated Ringers [Ringers, Lactated] 1,000 ml Med 06/18/21 02:46 Active IV .BOLUS Morphine Med 06/18/21 03:15 Active 2 mg IVPUSH Q4H Piperacillin/Tazobactam [Piperacil-Tazobact] 4.5 gm Med 06/18/21 02:45 Active Sodium Chloride 0.9% [Normal Saline] 100 ml IV Q8H Sodium Chloride 0.9% [Saline Flush] Med 06/17/21 19:55 Active 10 ml FLUSH ASDIRECTED PRN Sodium Chloride 0.9% [Saline Flush] Med 06/17/21 19:55 Active 2.5 ml FLUSH ASDIRECTED PRN Saline Lock Insert [OM.PC] Stat Oth 06/17/21 19:55 Ordered Medication Orders Piperacillin Sod/Tazobactam (Sod 4.5 gm/ Sodium Chloride) 100 mls @ 100 mls/hr IV Q8H [facility] Last Admin: 06/18/21 03:18 Dose: 100 mls/hr Documented by: ANA Lactated Ringer's (Ringers, Lactated) 1,000 mls @ 125 mls/hr IV .BOLUS ONE Stop: 06/18/21 10:45 Last Admin: 06/18/21 03:17 Dose: 125 mls/hr Documented by: ANA Morphine Sulfate (Morphine 4 Mg/Ml Syringe) 2 mg IVPUSH Q4H MARY Stop: 06/19/21 12:00 Last Admin: 06/18/21 03:19 Dose: 2 mg Documented by: ANA Sodium Chloride (Sodium Chloride 0.9% 10 Ml Syringe) 10 ml FLUSH ASDIRECTED PRN PRN Reason: Keep Vein Open Last Admin: 06/17/21 22:59 Dose: 10 ml Documented by: MAR Sodium Chloride (Sodium Chloride 0.9% 2.5 Ml Syringe) 2.5 ml FLUSH ASDIRECTED PRN PRN Reason: Keep Vein Open Last Admin: 06/17/21 22:59 Dose: 2.5 ml Documented by: MAR Labs: Laboratory Tests 06/17/21 06/17/21 06/17/21 Range/Units 20:16 20:16 20:16 WBC 13.74 H (4.0-11.0) K/uL RBC 5.32 (4.50-5.90) M/uL Hgb 14.8 (13.0-17.0) g/dL Hct 43.4 (38.0-50.0) % MCV 81.6 (80.0-98.0) fL MCH 27.8 (27.0-32.0) pg MCHC 34.1 (31.0-37.0) g/dL RDW Std Deviation 41.2 (28.0-62.0) fl RDW Coeff of Basil 14 (11.0-15.0) % Plt Count 288 (150-400) K/uL MPV 9.50 (7.40-12.00) fL Neut % (Auto) 75.8 (48.0-80.0) % Lymph % (Auto) 18.2 (16.0-40.0) % Mcintosh % (Auto) 4.9 (0.0-15.0) % Eos % (Auto) 0.8 (0.0-7.0) % Baso % (Auto) 0.3 (0.0-1.5) % Neut # (Auto) 10.4 H (1.4-5.7) K/uL Lymph # (Auto) 2.5 H (0.6-2.4) K/uL Mcintosh # (Auto) 0.7 (0.0-0.8) K/uL Eos # (Auto) 0.1 (0.0-0.7) K/uL Baso # (Auto) 0.0 (0.0-0.1) K/uL Nucleated RBC % 0.0 /100WBC Nucleated RBCs # 0 K/uL Sodium 134 L (136-148) mmol/L Potassium 4.2 (3.5-5.1) mmol/L Chloride 100 (98-107) mmol/L Carbon Dioxide 27.0 (21.0-32.0) mmol/L BUN 16 (7.0-18.0) mg/dL Creatinine 1.1 (0.8-1.3) mg/dL Est Cr Clr Drug Dosing 79.45 mL/min Estimated GFR (MDRD) > 60.0 ml/min Glucose 178 H (74-106) mg/dL Lactic Acid 1.8 (0.4-2.0) mmol/L Calcium 9.4 (8.5-10.1) mg/dL Phosphorus 3.7 (2.6-4.7) mg/dL Magnesium 2.0 (1.8-2.4) mg/dL Total Bilirubin 0.5 (0.2-1.0) mg/dL AST 26 (15-37) IU/L ALT 29 (14-63) IU/L Alkaline Phosphatase 83 (46-116) U/L Total Protein 7.9 (6.4-8.2) g/dL Albumin 3.8 (3.4-5.0) g/dL Globulin 4.1 H (2.6-4.0) g/dL Albumin/Globulin Ratio 0.9 (0.9-1.6) Lipase 124 (73-393) U/L Urine Color Urine Appearance Urine pH (5.0-8.0) Ur Specific Grinnell (1.001-1.035) Urine Protein (NEGATIVE) mg/dL Urine Glucose (UA) (NEGATIVE) mg/dL Urine Ketones (NEGATIVE) mg/dL Urine Occult Blood (NEGATIVE) Urine Nitrite (NEGATIVE) Urine Bilirubin (NEGATIVE) Urine Urobilinogen (<2.0) EU/dL Ur Leukocyte Esterase (NEGATIVE) Urine RBC (0-2/HPF) Urine WBC (0-5/HPF) Ur Epithelial Cells (NONE-FEW) Urine Bacteria (NEGATIVE) SARS-CoV-2 RNA (JOHN) (NEGATIVE) 06/17/21 06/17/21 Range/Units 21:05 23:01 WBC (4.0-11.0) K/uL RBC (4.50-5.90) M/uL Hgb (13.0-17.0) g/dL Hct (38.0-50.0) % MCV (80.0-98.0) fL MCH (27.0-32.0) pg MCHC (31.0-37.0) g/dL RDW Std Deviation (28.0-62.0) fl RDW Coeff of Basil (11.0-15.0) % Plt Count (150-400) K/uL MPV (7.40-12.00) fL Neut % (Auto) (48.0-80.0) % Lymph % (Auto) (16.0-40.0) % Mcintosh % (Auto) (0.0-15.0) % Eos % (Auto) (0.0-7.0) % Baso % (Auto) (0.0-1.5) % Neut # (Auto) (1.4-5.7) K/uL Lymph # (Auto) (0.6-2.4) K/uL Mcintosh # (Auto) (0.0-0.8) K/uL Eos # (Auto) (0.0-0.7) K/uL Baso # (Auto) (0.0-0.1) K/uL Nucleated RBC % /100WBC Nucleated RBCs # K/uL Sodium (136-148) mmol/L Potassium (3.5-5.1) mmol/L Chloride (98-107) mmol/L Carbon Dioxide (21.0-32.0) mmol/L BUN (7.0-18.0) mg/dL Creatinine (0.8-1.3) mg/dL Est Cr Clr Drug Dosing mL/min Estimated GFR (MDRD) ml/min Glucose (74-106) mg/dL Lactic Acid (0.4-2.0) mmol/L Calcium (8.5-10.1) mg/dL Phosphorus (2.6-4.7) mg/dL Magnesium (1.8-2.4) mg/dL Total Bilirubin (0.2-1.0) mg/dL AST (15-37) IU/L ALT (14-63) IU/L Alkaline Phosphatase (46-116) U/L Total Protein (6.4-8.2) g/dL Albumin (3.4-5.0) g/dL Globulin (2.6-4.0) g/dL Albumin/Globulin Ratio (0.9-1.6) Lipase (73-393) U/L Urine Color YELLOW Urine Appearance CLEAR Urine pH 6.0 (5.0-8.0) Ur Specific Grinnell >= 1.030 (1.001-1.035) Urine Protein NEGATIVE (NEGATIVE) mg/dL Urine Glucose (UA) NEGATIVE (NEGATIVE) mg/dL Urine Ketones NEGATIVE (NEGATIVE) mg/dL Urine Occult Blood SMALL H (NEGATIVE) Urine Nitrite NEGATIVE (NEGATIVE) Urine Bilirubin NEGATIVE (NEGATIVE) Urine Urobilinogen 0.2 (<2.0) EU/dL Ur Leukocyte Esterase NEGATIVE (NEGATIVE) Urine RBC 1-3 (0-2/HPF) Urine WBC 0-1 (0-5/HPF) Ur Epithelial Cells OCCASIONAL (NONE-FEW) Urine Bacteria FEW (NEGATIVE) SARS-CoV-2 RNA (JOHN) NEGATIVE (NEGATIVE) Meds: Medications Generic Name Dose Route Start Last Admin Trade Name Freq PRN Reason Stop Dose Admin Piperacillin Sod/Tazobactam 100 mls @ 100 mls/hr 06/18/21 02:45 06/18/21 03:18 Sod 4.5 gm/ Sodium Chloride IV 100 mls/hr Q8H MARY Administration Lactated Ringer's 1,000 mls @ 125 mls/hr 06/18/21 02:46 06/18/21 03:17 Ringers, Lactated IV 06/18/21 10:45 125 mls/hr .BOLUS ONE Administration Morphine Sulfate 2 mg 06/18/21 03:15 06/18/21 03:19 Morphine 4 Mg/Ml Syringe IVPUSH 06/19/21 12:00 2 mg Q4H MARY Administration Sodium Chloride 10 ml 06/17/21 19:55 06/17/21 22:59 Sodium Chloride 0.9% 10 Ml Syringe FLUSH 10 ml ASDIRECTED PRN Administration Keep Vein Open Sodium Chloride 2.5 ml 06/17/21 19:55 06/17/21 22:59 Sodium Chloride 0.9% 2.5 Ml Syringe FLUSH 2.5 ml ASDIRECTED PRN Administration Keep Vein Open Discontinued Medications Generic Name Dose Route Start Last Admin Trade Name Freq PRN Reason Stop Dose Admin Lactated Ringer's 1,000 mls @ 999 mls/hr 06/17/21 19:55 06/17/21 20:23 Ringers, Lactated IV 06/17/21 20:55 999 mls/hr .BOLUS ONE Administration Iopamidol 100 ml 06/17/21 21:20 06/17/21 21:43 Iopamidol 755 Mg/Ml 500 Ml Multipack Bottle IVPUSH 06/17/21 21:21 100 ml ONETIME ONE Administration Morphine Sulfate 4 mg 06/17/21 19:55 06/17/21 20:24 Morphine 4 Mg/Ml Syringe IVPUSH 06/17/21 19:56 4 mg ONETIME ONE Administration Morphine Sulfate 4 mg 06/17/21 22:52 06/17/21 22:58 Morphine 4 Mg/Ml Syringe IVPUSH 06/17/21 22:53 4 mg ONETIME ONE Administration Ondansetron HCl 4 mg 06/17/21 19:55 06/17/21 20:25 Ondansetron 4 Mg/2 Ml Sdv IVPUSH 06/17/21 19:56 4 mg ONETIME ONE Administration - Re-Assessments/Exams Free Text/Narrative Re-Assessment/Exam: 06/17/21 20:03 Ordered 1 L IV fluids, morphine 4 mg, Zofran 4 mg. 06/18/21 00:[address] Uriostegui, he reviewed the CT in the ER with me, he does not think patient is a surgical candidate suitable for at this facility given his previous complications requiring colorectal surgery. He previously saw Dr. Justin Hudson, colorectal surgery at [facility]. Dr. Uriostegui recommends that he be transferred there for a colorectal surgery consultation again. 06/18/21 01:26 Case discussed with [facility], they are at capacity and are not receiving transfers at this time. They may have a bed open up in the morning pending discharges. 06/18/21 02:44 Case discussed with [facility], they do not have colorectal surgery on-call. Case discussed with [facility], they do not have colorectal surgery coverage. Case discussed with [facility], they are on diversion. Case discussed with [facility], they are only taking STEMI, trauma, stroke at this time. I discussed this with the patient, informed him of the potential uncertain duration of waiting time prior to them regaining capacity to accept transfer. I told him that he may be boarding in the ER for an uncertain period of time. 06/18/21 02:56 Case discussed with [facility], they do not have colorectal surgery coverage. 06/18/21 03:17 Case discussed with [facility], they are at capacity not taking transfers at the moment. 06/18/21 03:19 d/w [place] transfer indian head, they will assist in looking for an accepting physician 06/18/21 03:48 case d/w Dr. Arnie Baum from [facility], he will accept transfer. Departure - Departure Time of Disposition: 03:51 Disposition: DC/Tfer to Acute Hospital 02 Condition: Serious Clinical Impression: Incarcerated ventral hernia - Discharge Information *PRESCRIPTION DRUG MONITORING PROGRAM REVIEWED*: Not Applicable *COPY OF PRESCRIPTION DRUG MONITORING REPORT IN PATIENT LANCE: Not Applicable Instructions: Ventral Hernia Referrals: PCP,None [Primary Care Provider] - Forms: ED Department Discharge Critical Care Note - Critical Care Note Total Time (mins): 40 Comments: CRITCAL CARE: The high probability of sudden, clinically significant deterioration in the patient's condition required the highest level of my preparedness to intervene urgently. The services I provided to this patient were to treat and/or prevent clinically significant deterioration. Services included the following: chart data review, reviewing nursing notes and/or old charts, documentation time, new home sales consultant collaboration regarding findings and treatment options, medication orders and management, direct patient care, vital sign assessments and ordering, interpreting and reviewing diagnostic studies/lab tests. Aggregate critical care time includes only time during which I was engaged in work directly related to the patient's care, as described above, whether at the bedside or elsewhere in the Emergency Department. It did not include time spent performing other reported procedures or the services of residents, students, nurses or physician assistants. Frequent interventions and/or frequent repeat evaluations were required as well as counseling and coordination of care regarding prognosis, treatments, and discussions with patient, staff and consultants. Critical Care (excluding other procedures): 40 minutes Sepsis Event Note (ED) - Focused Exam Vital Signs: Vital Signs Temp Pulse Resp BP Pulse Ox 06/18/21 03:24 96.8 F L 78 18 116/67 93 L 06/18/21 01:11 97.2 F 86 18 123/70 93 L 06/17/21 23:00 88 18 130/80 94 L 06/17/21 18:26 97.8 F 88 18 144/82 H 97 06/17/21 18:08 96.9 F 105 H 18 140/49 L 95 - My Orders Last 24 Hours: My Active Orders 06/17/21 19:55 Cardiac Monitoring [RC] . DIRECTED Pulse Oximetry [RC] ASDIRECTED Sodium Chloride 0.9% [Saline Flush] 10 ml FLUSH ASDIRECTED PRN Sodium Chloride 0.9% [Saline Flush] 2.5 ml FLUSH ASDIRECTED PRN Saline Lock Insert [OM.PC] Stat 06/18/21 02:45 Piperacillin/Tazobactam [Piperacil-Tazobact] 4.5 gm Sodium Chloride 0.9% [Normal Saline] 100 ml IV Q8H 06/18/21 02:46 Lactated Ringers [Ringers, Lactated] 1,000 ml IV .BOLUS 06/18/21 03:15 Morphine 2 mg IVPUSH Q4H - Assessment/Plan Last 24 Hours: My Active Orders 06/17/21 19:55 Cardiac Monitoring [RC] . DIRECTED Pulse Oximetry [RC] ASDIRECTED Sodium Chloride 0.9% [Saline Flush] 10 ml FLUSH ASDIRECTED PRN Sodium Chloride 0.9% [Saline Flush] 2.5 ml FLUSH ASDIRECTED PRN Saline Lock Insert [OM.PC] Stat 06/18/21 02:45 Piperacillin/Tazobactam [Piperacil-Tazobact] 4.5 gm Sodium Chloride 0.9% [Normal Saline] 100 ml IV Q8H 06/18/21 02:46 Lactated Ringers [Ringers, Lactated] 1,000 ml IV .BOLUS 06/18/21 03:15 Morphine 2 mg IVPUSH Q4H
[2021-06-17 20:48] LABS: BLOOD UREA NITROGEN,BUN 16 mg/dL (7.0-18.0); CHLORIDE,CL 100 mmol/L (98-107); GLUCOSE RANDOM 178 mg/dL (74-106); LIPASE 124 U/L (73-393); POTASSIUM,K 4.2 mmol/L (3.5-5.1); SODIUM,NA 134 mmol/L (136-148)
[2021-06-17] MEDS ORDERED: Iopamidol 755 MG/ML 500 ML Multipack Bottle IVPUSH ONE (21:20)
--- NOTE | 2021-06-17 22:20 | CT ---
INDICATION: Abdominal pain TECHNIQUE: CT abdomen and pelvis acquired with 100 cc Isovue 370 IV contrast. COMPARISON: April 19, 2021 FINDINGS: Lower chest: Unremarkable. Liver: Hepatic steatosis. Spleen: Unremarkable. Pancreas: Unremarkable. Gallbladder and bile ducts: Cholelithiasis. Adrenal glands: Stable 1.8 cm left adrenal gland nodule. A prior CT showed this was a benign adenoma. Kidneys: Nonobstructive left nephrolithiasis. GI tract: Status post right hemicolectomy. Vascular structures: Unremarkable. Lymph nodes: Unremarkable. Miscellaneous: Left upper quadrant ventral hernia containing a loop of small bowel measuring 3.5 cm in diameter. No small-bowel wall thickening. There is fluid-filled small bowel proximal to the hernia sac measuring up to 3.3 cm in size. Right lower quadrant ventral hernia containing normal-appearing loops of bowel and mesenteric fat. Fat containing midline lower abdominal ventral hernia. No free air or significant free fluid. Pelvic Organs: Unremarkable. Bones: Unremarkable for age. IMPRESSION: Findings concerning for incarcerated left upper quadrant ventral hernia. Hepatic steatosis. Cholelithiasis. Stable left adrenal gland nodule. Nonobstructive left nephrolithiasis. Status post right hemicolectomy. Two additional ventral hernias as described above without evidence for incarceration. Please note that all CT scans at this facility use dose modulation, iterative reconstruction, and/or weight-based dosing when appropriate to reduce radiation dose to as low as reasonably achievable. Dictated by Sridevi Ulloa MD @ 06/17/2021 10:18:48 PM (Electronically Signed)
[2021-06-18] MEDS ORDERED: Piperacillin/Tazobactam 4.5 GM in Sodium Chloride 0.9% 100 ML IV SCH (02:45)
[2021-06-18] MEDS ORDERED: Lactated Ringers 1,000 ML IV ONE (02:46)
[2021-06-18] MEDS: Morphine 4 MG/ML Syringe IVPUSH SCH ×2 (03:19→07:05)
== END 2021-06-18 09:45 ==
LOC: MW.ED 17:52
DX: K43.6 Other and unspecified ventral hernia with obstruction, without gangrene (principal); Z20.822 Contact with and (suspected) exposure to COVID-19; E11.9 Type 2 diabetes mellitus without complications; I10 Essential (primary) hypertension; E66.01 Morbid (severe) obesity due to excess calories; Z79.84 Long term (current) use of oral hypoglycemic drugs; Z79.899 Other long term (current) drug therapy; Z72.0 Tobacco use; Z68.43 Body mass index [BMI] 50.0-59.9, adult
CPT/HCPCS: 36415; 74177; 80053; 81001; 83605; 83690; 83735; 84100; 85025; 87635; 96365; 96375; 96376; 99285; J2270; J2405; J2543; J7120; Q9967; U0002

== ENCOUNTER 2022-10-26 23:47 | Emergency (ER) | payer BC, MEDICAID ==
[2022-10-27] MEDS ORDERED: Ondansetron 4 MG/2 ML SDV IVPUSH ONE (00:24)
[2022-10-27] MEDS ORDERED: Morphine 4 MG/ML Syringe IVPUSH ONE (00:24)
[2022-10-27 00:42] LABS: CARBON DIOXIDE,CO2 28.9 mmol/L (21.0-32.0); POTASSIUM,K 3.8 mmol/L (3.5-5.1)
[2022-10-27] MEDS ORDERED: Iopamidol 755 MG/ML 500 ML Multipack Bottle IVPUSH ONE (00:53)
== END 2022-10-27 03:09 ==
LOC: MW.ED 23:47
DX: K46.0 Unspecified abdominal hernia with obstruction, without gangrene (principal); I10 Essential (primary) hypertension; E11.9 Type 2 diabetes mellitus without complications; E66.9 Obesity, unspecified; Z68.42 Body mass index [BMI] 45.0-49.9, adult; Z79.899 Other long term (current) drug therapy; Z20.822 Contact with and (suspected) exposure to COVID-19
CPT/HCPCS: 36415; 74177; 80053; 83605; 83690; 83735; 85025; 87635; 96374; 96375; 99284; J2270; J2405; Q9967; U0002

== ENCOUNTER 2025-01-28 20:04 | Emergency (ER) | payer BC, MEDICAID | END 2025-01-28 21:45 | disposition home or self-care (01) | LOC: MW.ED 20:04 | DX: L03.031 Cellulitis of right toe (principal); I10 Essential (primary) hypertension; E11.9 Type 2 diabetes mellitus without complications; E66.9 Obesity, unspecified; F17.200 Nicotine dependence, unspecified, uncomplicated; Z68.43 Body mass index [BMI] 50.0-59.9, adult; Z79.84 Long term (current) use of oral hypoglycemic drugs; Z79.899 Other long term (current) drug therapy; Z75.3 Unavailability and inaccessibility of health-care facilities | CPT/HCPCS: 99282; 99283 ==